=== PATIENT | male | born 1985 | race Caucasian/White ===

== ENCOUNTER → 2017-10-17 | Outpatient (CLI) | payer OTHER ==
[~2017-10-17] MED LIST: PROHANCE 279.3MG/ML 15ML VIAL (A9576) As Ordered; PROHANCE 279.3MG/ML 5ML VIAL (A9576) As Ordered
== END ==
LOC: M RAD 12:25
DX: H90.11 Conductive hearing loss, unilateral, right ear, with unrestricted hearing on the contralateral side (principal)
CPT/HCPCS: A9576

== ENCOUNTER → 2018-03-03 | Outpatient (CLI) | payer OTHER ==
[2018-03-03 09:27] LABS: HEMATOCRIT 45.5 % (42.0-52.0); HEMOGLOBIN 15.2 g/dl (13.5-17.5); MEAN CORPUSCULAR HEMOGLOBIN 30.8 pg (27.0-33.0); MEAN CORPUSCULAR HGB CONC 33.4 g/dl (32.0-36.5); MEAN CORPUSCULAR VOLUME 92.3 fl (80.0-96.0); PLATELET COUNT, AUTOMATED 251 10^3/uL (150-450); RED BLOOD COUNT 4.93 10^6/uL (4.30-6.10); RED CELL DISTRIBUTION WIDTH 13.6 % (11.5-14.5); WHITE BLOOD COUNT 7.9 10^3/uL (4.0-10.0)
[2018-03-03 09:56] LABS: ALBUMIN 3.9 GM/DL (3.2-5.2); ALKALINE PHOSPHATASE 72 U/L (45-117); ALT/SGPT 54 U/L (12-78); ANION GAP 4 MEQ/L (8-16); AST/SGOT 29 U/L (7-37); BILIRUBIN,TOTAL 0.4 MG/DL (0.2-1.0); BLOOD UREA NITROGEN 12 MG/DL (7-18); CALCIUM LEVEL 8.7 MG/DL (8.5-10.1); CARBON DIOXIDE LEVEL 29 MEQ/L (21-32); CHLORIDE LEVEL 107 MEQ/L (98-107); CHOLESTEROL LEVEL 168 MG/DL (<200); CREATININE FOR GFR 1.17 MG/DL (0.70-1.30); GLOMERULAR FILTRATION RATE > 60.0 (>60); GLUCOSE, FASTING 111 MG/DL (70-100); HDL CHOLESTEROL 37 MG/DL (>40); IRON (FE) 58 UG/DL (65-175); LDL CHOLESTEROL 97.2 MG/DL (<100); NON-HDL-C 131 MG/DL; PERCENT SATURATION 22.2 % (19.7-50.0); POTASSIUM SERUM 4.8 MEQ/L (3.5-5.1); SODIUM LEVEL 140 MEQ/L (136-145); TOTAL IRON BINDING CAPACITY 261 UG/DL (250-450); TOTAL PROTEIN 6.9 GM/DL (6.4-8.2); TRIGLYCERIDES LEVEL 169 MG/DL (<150)
[2018-03-03 10:43] LABS: TOTAL 25(OH) VITAMIN D 23.5 NG/ML (30.0-100.0)
== END ==
LOC: M LAB 09:04
DX: R53.83 Other fatigue (principal); D64.9 Anemia, unspecified; E03.9 Hypothyroidism, unspecified
CPT/HCPCS: 83550

== ENCOUNTER → 2018-06-02 | Outpatient (CLI) | payer OTHER ==
[~2018-06-02] MED LIST changes: +E-Z-GAS II EFFERVESCENT PACKET (SODIUM BICARB./CITRIC ACID/SIMETHICONE) As Ordered; +E-Z-HD 98% w/w 340GM SUSP BTL As Ordered; +E-Z-PAQUE 96% w/w SUSP 176GM BTL As Ordered; -PROHANCE 279.3MG/ML 15ML VIAL (A9576) As Ordered; -PROHANCE 279.3MG/ML 5ML VIAL (A9576) As Ordered
== END ==
LOC: M RAD 09:45
DX: K21.9 Gastro-esophageal reflux disease without esophagitis (principal); R13.10 Dysphagia, unspecified
CPT/HCPCS: 74241

== ENCOUNTER 2018-11-09 12:23 | Day surgery (SDC) | payer OTHER, SELFPAY ==
[~2018-11-09] VITALS: Ht 182.9 cm; Wt 119.7 kg
[~2018-11-09 12:23] MED LIST changes: +ALPR0.5T3 PO; -E-Z-GAS II EFFERVESCENT PACKET (SODIUM BICARB./CITRIC ACID/SIMETHICONE) As Ordered; -E-Z-HD 98% w/w 340GM SUSP BTL As Ordered; -E-Z-PAQUE 96% w/w SUSP 176GM BTL As Ordered; +ESCI20TA PO; +MOME50SP2; +NS 1,000 ML IV ONE; +OMEP20TA PO
[2018-11-09] MEDS ORDERED: PROPOFOL 200 MG/20 ML VIAL As Ordered ONE (13:05)
[2018-11-09] MEDS ORDERED: LIDOCAINE 2% INJ 100 MG/5 ML SDV (FOR ANES.) As Ordered ONE (13:05)
--- NOTE | 2018-11-09 14:46 | ROOR ---
Patient Name: Kennedy Moreno Procedure Date: 11/09/2018 2:16 PM Date of : 1985 Age: 33 Room: [facility] Gender: Male Note Status: Finalized Procedure: Upper GI endoscopy Indications: Heartburn, Suspected gastro-esophageal reflux disease Providers: Vik Juan MD Referring MD: CARYN CONNOR MD Requesting Provider: Medicines: Monitored Anesthesia Care Complications: No immediate complications. Procedure: Pre-Anesthesia Assessment: - Prior to the procedure, a History and Physical was performed, and patient medications and allergies were reviewed. The patient is competent. The risks and benefits of the procedure and the sedation options and risks were discussed with the patient. All questions were answered and informed consent was obtained. Patient identification and proposed procedure were verified by the physician, the nurse and the anesthesiologist in the procedure room. Mental Status Examination: alert and oriented. Airway Examination: normal oropharyngeal airway and neck mobility. Respiratory Examination: clear to auscultation. CV Examination: normal. Prophylactic Antibiotics: The patient does not require prophylactic antibiotics. Prior Anticoagulants: The patient has taken no previous anticoagulant or antiplatelet agents. ASA Grade Assessment: II - A patient with mild systemic disease. After reviewing the risks and benefits, the patient was deemed in satisfactory condition to undergo the procedure. The anesthesia plan was to use monitored anesthesia care (MAC). Immediately prior to administration of medications, the patient was re-assessed for adequacy to receive sedatives. The heart rate, respiratory rate, oxygen saturations, blood pressure, adequacy of pulmonary ventilation, and response to care were monitored throughout the procedure. The physical status of the patient was re-assessed after the procedure. The Endoscope was introduced through the mouth, and advanced to the second part of duodenum. The upper GI endoscopy was accomplished without difficulty. The patient tolerated the procedure well. Findings: The Z-line was regular and was found 40 cm from the incisors. Mucosal changes including ringed esophagus, longitudinal furrows and white plaques were found in the middle third of the esophagus and in the lower third of the esophagus. Biopsies were obtained from the proximal and distal esophagus with cold forceps for histology of suspected eosinophilic esophagitis. Verification of patient identification for the specimen was done by the physician and nurse using the patient's name, date and medical record number. Estimated blood loss was minimal. Diffuse moderate inflammation characterized by erythema and granularity was found in the gastric body and in the gastric antrum. Biopsies were taken with a cold forceps for Helicobacter pylori testing. The duodenal bulb and second portion of the duodenum were normal. Impression: - Z-line regular, 40 cm from the incisors. - Esophageal mucosal changes suspicious for eosinophilic esophagitis. Biopsied. - Gastritis. Biopsied. - Normal duodenal bulb and second portion of the duodenum. Recommendation: - Patient has a contact number available for emergencies. The signs and symptoms of potential delayed complications were discussed with the patient. Return to normal activities tomorrow. Written discharge instructions were provided to the patient. - Resume previous diet. - Continue present medications. - Follow an antireflux regimen. - Await pathology results. - Based on the biopsy results you will receive a phone call from GI clinic in 2-3 weeks to review the pathology results AND/OR your results will be faxed to your Primary care physician. - Return to primary care physician. Vik Juan MD Vik Juan MD 11/09/2018 2:46:11 PM This report has been signed electronically. Number of Addenda: 0 Note Initiated On: 11/09/2018 2:16 PM Estimated Blood Loss: Estimated blood loss: none.
[2018-11-09 15:09] VITALS: BP 128/78
== END 2018-11-09 15:08 | disposition home or self-care (01) ==
LOC: M OPP 12:23
PROVIDERS: ATTEND Internal Medicine Gastroenterology
DX: K22.8 Other specified diseases of esophagus (principal); K29.70 Gastritis, unspecified, without bleeding; R12 Heartburn; K21.9 Gastro-esophageal reflux disease without esophagitis

== ENCOUNTER 2018-11-24 11:03 | Emergency (ER) | payer OTHER ==
[~2018-11-24] VITALS: Ht 182.9 cm; Wt 260.0 kg
[2018-11-24 11:03] VITALS: BP 142/90
[~2018-11-24 11:03] MED LIST changes: -NS 1,000 ML IV ONE
== END 2018-11-24 11:53 | disposition home or self-care (01) ==
LOC: M ED 11:03
DX: M79.651 Pain in right thigh (principal); M79.10 Myalgia, unspecified site

== ENCOUNTER → 2019-01-06 | Outpatient (CLI) | payer OTHER ==
[~2019-01-06] MED LIST changes: +ISOVUE-370 76% 125ML VIAL (Q9967 PER ML) As Ordered ONE
--- NOTE | 2019-01-06 17:46 | REP ---
Clinical: History of thoracic aortic aneurysm. Technique: Axial angiographic imaging from the thoracic inlet to the upper abdomen with images obtained in maximal arterial enhancement using 100 ml Isovue 370 intravenous contrast material. Multiplanar re-formations and MIP 3-D images obtained. Findings: Mild cardiomegaly cannot be excluded. There is no evidence for pericardial effusion. There is aneurysmal dilatation to the root of the aorta measuring approximately 4.6 cm maximal diameter with smooth tapering to the level of the aortic arch measuring 3.1 cm diameter and in the mid descending thoracic aorta measuring 2.6 cm maximal diameter. No evidence for atheromatous plaquing, intimal thickening, or dissection appreciated. Pulmonary vasculature appears normal. The bilateral lung koehler are well-aerated and clear. No consolidation, effusion, or pneumothorax. No axillary, hilar, or mediastinal adenopathy. Tracheobronchial tree is patent. Surrounding musculoskeletal structures are intact and normal. Impression: 1. Aneurysmal dilatation to the ascending thoracic aorta with smooth normal tapering through the arch and descending aorta. 2. No acute mediastinal or pleuroparenchymal process appreciated. Electronically Signed by Palomo Diamond MD 01/06/2019 05:37 P
--- NOTE | 2019-01-06 17:51 | REP ---
Clinical: Thoracic aortic aneurysm. Technique: Axial angiographic imaging from the lung bases to the pubic symphysis with images obtained in maximal arterial enhancement using 100 ml Isovue 370 intravenous contrast material. Multiplanar and 3-D MIP re-formations of the aorta and branch vessels noted. Findings: The abdominal aorta is normal caliber and there is no evidence for aneurysm or dissection. All upper abdominal aorta measures approximately 2.4 cm maximal diameter at the level of the celiac axis while the mid aorta just below the renal arteries measures 1.9 cm maximal diameter and the distal aorta just before bifurcation measures 1.8 cm maximal diameter. Major branch vessels including celiac axis, superior mesenteric artery, solitary right and dual left renal arteries, JANET, lumbar arteries and common iliac arteries are all normal in appearance. Spleen, pancreas, gallbladder, bilateral adrenal glands, kidneys and visualized portions of the liver are normal. The enteric system is without obstruction or acute inflammatory process. Normal terminal ileum and appendix identified in the right lower quadrant. Pelvis demonstrates normal bladder and age appropriate prostate/seminal vesicles. No ascites. No free air. No adenopathy. Musculoskeletal structures are intact. Impression: 1. Normal abdominal aorta and branch vessels. 2. No acute abdominopelvic pathology appreciated. Electronically Signed by Palomo Diamond MD 01/06/2019 05:41 P
== END ==
LOC: M RAD 16:19
PROVIDERS: ATTEND Internal Medicine Cardiovascular Disease
DX: Q23.1 Congenital insufficiency of aortic valve (principal); K21.9 Gastro-esophageal reflux disease without esophagitis; F41.1 Generalized anxiety disorder; Z87.11 Personal history of peptic ulcer disease; R01.1 Cardiac murmur, unspecified
CPT/HCPCS: 71275; 74174; Q9967

== ENCOUNTER → 2019-01-13 | Outpatient (REF) | payer OTHER ==
[~2019-01-13] MED LIST changes: -ISOVUE-370 76% 125ML VIAL (Q9967 PER ML) As Ordered ONE
== END ==
LOC: M SFHCLERA 11:21
PROVIDERS: ATTEND Physician Assistant
DX: J06.9 Acute upper respiratory infection, unspecified (principal)

== ENCOUNTER → 2019-07-14 | Outpatient (CLI) | payer OTHER ==
[~2019-07-14] MED LIST changes: +OMEP-358 PO; -OMEP20TA PO
[2019-07-14 08:56] LABS: HEMATOCRIT 48.1 % (42.0-52.0); MEAN CORPUSCULAR HEMOGLOBIN 30.9 pg (27.0-33.0); MEAN CORPUSCULAR HGB CONC 33.3 g/dl (32.0-36.5); MEAN CORPUSCULAR VOLUME 92.9 fl (80.0-96.0); PLATELET COUNT, AUTOMATED 295 10^3/uL (150-450); RED BLOOD COUNT 5.18 10^6/uL (4.30-6.10); WHITE BLOOD COUNT 5.9 10^3/uL (4.0-10.0)
[2019-07-14 09:39] LABS: ALBUMIN 4.1 GM/DL (3.2-5.2); ALT/SGPT 53 U/L (12-78); BILIRUBIN,TOTAL 1.2 MG/DL (0.2-1.0); BLOOD UREA NITROGEN 13 MG/DL (7-18); CALCIUM LEVEL 9.3 MG/DL (8.5-10.1); CARBON DIOXIDE LEVEL 29 MEQ/L (21-32); CHLORIDE LEVEL 106 MEQ/L (98-107); CHOLESTEROL LEVEL 193 MG/DL (<200); CHOLESTEROL RISK RATIO 4.707 (<5); CREATININE FOR GFR 1.27 MG/DL (0.70-1.30); GLOMERULAR FILTRATION RATE > 60.0 (>60); GLUCOSE, FASTING 104 MG/DL (70-100); HDL CHOLESTEROL 41 MG/DL (>40); LDL CHOLESTEROL 129 MG/DL (<100); NON-HDL-C 152 MG/DL; POTASSIUM SERUM 4.7 MEQ/L (3.5-5.1); SODIUM LEVEL 140 MEQ/L (136-145); TOTAL PROTEIN 7.4 GM/DL (6.4-8.2); TRIGLYCERIDES LEVEL 116 MG/DL (<150)
[2019-07-14 09:40] LABS: TOTAL 25(OH) VITAMIN D 27.2 NG/ML (30.0-100.0)
[2019-07-14 10:10] LABS: HEMOGLOBIN A1c 6.1 %
== END ==
LOC: M LAB 08:07
PROVIDERS: ATTEND Family Medicine
DX: R53.83 Other fatigue (principal)

== ENCOUNTER → 2019-07-14 | Outpatient (CLI) | payer OTHER ==
[2019-07-14 08:56] LABS: HEMATOCRIT 46.6 % (42.0-52.0); HEMOGLOBIN 15.6 g/dl (13.5-17.5); MEAN CORPUSCULAR HEMOGLOBIN 30.8 pg (27.0-33.0); MEAN CORPUSCULAR HGB CONC 33.5 g/dl (32.0-36.5); MEAN CORPUSCULAR VOLUME 91.9 fl (80.0-96.0); PLATELET COUNT, AUTOMATED 291 10^3/uL (150-450); RED BLOOD COUNT 5.07 10^6/uL (4.30-6.10); WHITE BLOOD COUNT 5.9 10^3/uL (4.0-10.0)
[2019-07-14 09:30] LABS: ALBUMIN 4.1 GM/DL (3.2-5.2); ALT/SGPT 55 U/L (12-78); BILIRUBIN,DIRECT 0.2 MG/DL (0.0-0.2); BILIRUBIN,TOTAL 1.2 MG/DL (0.2-1.0); BLOOD UREA NITROGEN 14 MG/DL (7-18); CALCIUM LEVEL 9.3 MG/DL (8.5-10.1); CARBON DIOXIDE LEVEL 29 MEQ/L (21-32); CHLORIDE LEVEL 106 MEQ/L (98-107); CREATININE FOR GFR 1.26 MG/DL (0.70-1.30); GLOMERULAR FILTRATION RATE > 60.0 (>60); GLUCOSE, FASTING 107 MG/DL (70-100); PHOSPHORUS LEVEL 2.7 MG/DL (2.5-4.9); POTASSIUM SERUM 4.5 MEQ/L (3.5-5.1); SODIUM LEVEL 141 MEQ/L (136-145); TOTAL PROTEIN 7.2 GM/DL (6.4-8.2)
== END ==
LOC: M LAB 08:10
PROVIDERS: ATTEND Podiatrist Foot & Ankle Surgery
DX: B35.1 Tinea unguium (principal); Z79.899 Other long term (current) drug therapy

== ENCOUNTER 2019-08-14 22:32 | Emergency (ER) | payer OTHER ==
[~2019-08-14] VITALS: Ht 182.9 cm; Wt 122.1 kg
[2019-08-15] MEDS ORDERED: diphenhydrAMINE 50 MG CAP PO ONE
[2019-08-15 00:08] VITALS: BP 145/95
== END 2019-08-15 00:09 | disposition home or self-care (01) ==
LOC: M ED 22:32
DX: L50.9 Urticaria, unspecified (principal); I35.0 Nonrheumatic aortic (valve) stenosis; R51 Headache; K21.9 Gastro-esophageal reflux disease without esophagitis; Z79.899 Other long term (current) drug therapy

== ENCOUNTER → 2019-10-01 | Outpatient (CLI) | payer OTHER ==
--- NOTE | 2019-10-01 09:37 | REP ---
Clinical: Hypothyroidism and fatigue . Comparison: None . Technique: PA and lateral. Findings: The mediastinum and cardiac silhouette are normal. The lung koehler are clear and without acute consolidation, effusion, or pneumothorax. The skeletal structures are intact and normal. Impression: 1. No acute cardiopulmonary process. Electronically Signed by Palomo Diamond MD 10/01/2019 09:28 A
[2019-10-01 11:15] LABS: HEMATOCRIT 48.3 % (42.0-52.0); HEMOGLOBIN 15.9 g/dl (13.5-17.5); MEAN CORPUSCULAR HEMOGLOBIN 30.5 pg (27.0-33.0); MEAN CORPUSCULAR HGB CONC 32.9 g/dl (32.0-36.5); MEAN CORPUSCULAR VOLUME 92.5 fl (80.0-96.0); PLATELET COUNT, AUTOMATED 295 10^3/uL (150-450); RED BLOOD COUNT 5.22 10^6/uL (4.30-6.10); WHITE BLOOD COUNT 6.5 10^3/uL (4.0-10.0)
[2019-10-01 11:27] LABS: ALBUMIN 4.1 GM/DL (3.2-5.2); ALT/SGPT 45 U/L (12-78); BILIRUBIN,TOTAL 0.7 MG/DL (0.2-1.0); BLOOD UREA NITROGEN 11 MG/DL (7-18); CALCIUM LEVEL 9.2 MG/DL (8.5-10.1); CARBON DIOXIDE LEVEL 28 MEQ/L (21-32); CHLORIDE LEVEL 109 MEQ/L (98-107); CHOLESTEROL LEVEL 204 MG/DL (<200); CHOLESTEROL RISK RATIO 4.744 (<5); CREATININE FOR GFR 1.12 MG/DL (0.70-1.30); GLOMERULAR FILTRATION RATE > 60.0 (>60); GLUCOSE, FASTING 98 MG/DL (70-100); HDL CHOLESTEROL 43 MG/DL (>40); LDL CHOLESTEROL 144 MG/DL (<100); NON-HDL-C 161 MG/DL; POTASSIUM SERUM 4.5 MEQ/L (3.5-5.1); SODIUM LEVEL 142 MEQ/L (136-145); TOTAL PROTEIN 7.3 GM/DL (6.4-8.2); TRIGLYCERIDES LEVEL 87 MG/DL (<150)
[2019-10-01 11:29] LABS: TOTAL 25(OH) VITAMIN D 14.2 NG/ML (30.0-100.0)
[2019-10-01 12:13] LABS: HEMOGLOBIN A1c 6.1 %
== END ==
LOC: M LAB 09:02
PROVIDERS: ATTEND Family Medicine
DX: R53.83 Other fatigue (principal)

== ENCOUNTER 2020-07-22 22:47 | Emergency (ER) | payer BC ==
[~2020-07-22] VITALS: Ht 185.4 cm; Wt 121.9 kg
[2020-07-22] MEDS ORDERED: BENA25CA4 PO (22:59)
[2020-07-22] MEDS ORDERED: PANT40TA29 PO (23:00)
[2020-07-23 00:41] VITALS: BP 133/72
== END 2020-07-23 00:43 | disposition home or self-care (01) ==
LOC: M ED 22:47
DX: F41.1 Generalized anxiety disorder (principal); K21.9 Gastro-esophageal reflux disease without esophagitis; Z79.899 Other long term (current) drug therapy

== ENCOUNTER → 2020-10-28 | Outpatient (CLI) | payer BC ==
[~2020-10-28] MED LIST changes: +BENA25CA4 PO; -ESCI20TA PO; +ESCI20TA16 PO; +LEXA5TAB13 PO; +PANT40TA29 PO
== END ==
LOC: M LABSMTC 09:34
PROVIDERS: ATTEND Anesthesiology
DX: Z01.812 Encounter for preprocedural laboratory examination (principal); Z20.822 Contact with and (suspected) exposure to COVID-19

== ENCOUNTER 2020-11-02 11:02 | Day surgery (SDC) | payer BC ==
[~2020-11-02] VITALS: Ht 185.4 cm; Wt 117.9 kg
[~2020-11-02 11:02] MED LIST changes: +NS 1,000 ML IV ONE
--- OUTSIDE RECORDS SUMMARY | 2020-11-02 11:07 | CCD | Continuity of Care Document ---
Author Author Kennedy FAIRBANKS MD Organization Unknown Address [address] [place] [address] Phone [phone] Care Team Providers Care Shotblast Equipment Operator Name Role Phone Saba Peralta MD AUTM [phone] Raj Sawant MD AUTM [phone] Problems Active Problems Provider Date Bicuspid aortic valve Onset: Anxiety Onset: Gastroesophageal reflux disease Bhupendra Fairbanks MD Onset: 0 12/29/2018 Generalized anxiety disorder Bhupendra Fairbanks MD Onset: 12/05 H/O: peptic ulcer Bhupendra Fairbanks MD Onset: 12/29/2018 Aneurysm of thoracic aorta Bhupendra Fairbanks MD Onset: 2018 Social History Type Date Description Comments Sex Unknown ETOH Use Occasionally consumes alcohol so cially once weekly Tobacco Use Start: Unknown Patient has never smoked Recreational Drug Use Denies Drug Use Smoking Status Reviewed: 10/18/20 Patient has never smoked Allergies, Adverse Reactions, Alerts Active Allergies Reaction Severity Comments Date Zithromax 07/21/2020 Inactive Allergies NKDA 12/25/2018 Medications Active Medications SIG Qnty Indications Ordering Provide r Date Alprazolam 0.5mg Tablets as n eeded Unknown Daily Value Multivitamin Tablets 1 by mouth every day Unknown Escitalopram Oxalate 20mg Tablets 1 tab by mouth weekly Unknown Immunizations Description No Information Available Vital Signs Date Vital Result Comment 10/18/2020 3:07pm BP Systolic 116 mmHg BP Diastolic 78 mmHg Heart Rate 72 /min Height 72 inches 6'0" Weight 262.00 lb BMI (Body Mass Index) 35.5 kg/m2 Respiratory Rate 16 /min 07/21/2020 9:03am BP Systolic 110 mmHg BP Diastolic 64 mmHg Heart Rate 78 /min Height 72 inches 6'0" Weight 267.00 lb BMI (Body Mass Index) 36.2 kg/m2 Results Test Acquired Date Facility Test Result H/L Range Note Order 08/21/2020 [facility] Echocardiogram Limited <pending> Order 08/18/2020 [facility] Nuclear Exercise/Myoview <pending> Order 08/18/2020 [facility] Carotid Bilateral <pending> Procedures Date Code Description Status 08/21/2020 08481 Echocardiography Complete W/Out Spectral/Color Doppler Completed 08/18/2020 53900 Duplex Scan Extracranial Arterie s, Complete Bilateral Study Completed 08/18/2020 62050 Cardiovascular Stress Test W/Int erpretation & Report Completed 08/18/2020 02857 Myocardial Perfusion Imaging Tomographic (Spect) Multiple Studies Completed Medical Devices Description No Information Available Encounters Type Date Location Provider Dx Diagnosis Office Visit 10/18/2020 3:00p [place] [facility] Bhupendra Fairbanks MD I71.2 Thoracic aortic aneurysm, without rupture K21.9 Gastro-esophageal reflux dis ease without esophagitis F41.1 Generalized anxiety disorder Q23.1 Congenital insufficiency of aortic valve Office Visit 07/21/2020 9:00a [place] [facility] Bhupendra Fairbanks MD K21.9 Gastro- esophageal reflux disease without esophagitis F41.1 Generalized anxiety disorder Z87.11 Personal history of peptic u lcer disease Q23.1 Congenital insufficiency of aortic valve I71.2 Thoracic aortic aneurysm, wi thout rupture Assessments Date Code Description Provider 10/18/2020 I71.2 Thoracic aortic aneurysm, withou t rupture Bhupendra Fairbanks MD 10/18/2020 K21.9 Gastro-esophageal reflux disease without esophagitis Bhupendra Fairbanks MD 10/18/2020 F41.1 Generalized anxiety disorder Tho cynthia Fairbanks MD 10/18/2020 Q23.1 Congenital insufficiency of aort ic valve Bhupendra Fairbanks MD 08/21/2020 I71.2 Thoracic aortic aneurysm, withou t rupture Jonn Tillman MD 08/21/2020 Q23.1 Congenital insufficiency of aort ic valve Jonn Tillman MD 08/21/2020 K21.9 Gastro-esophageal reflux disease without esophagitis Jonn Tillman MD 08/18/2020 I71.2 Thoracic aortic aneurysm, withou t rupture Jonn Tillman MD 08/18/2020 I71.2 Thoracic aortic aneurysm, withou t rupture Low Portillo MD 08/18/2020 Q23.1 Congenital insufficiency of aort ic valve Jonn Tillman MD 08/18/2020 Q23.1 Congenital insufficiency of aort ic valve Low Portillo MD 08/18/2020 Q23.1 Congenital insufficiency of aort ic valve Daniel Zuniga MD 08/18/2020 I71.2 Thoracic aortic aneurysm, withou t rupture Daniel Zuniga MD 07/21/2020 K21.9 Gastro-esophageal reflux disease without esophagitis Bhupendra Fairbanks MD 07/21/2020 F41.1 Generalized anxiety disorder Yoan Fairbanks MD 07/21/2020 Z87.11 Personal history of peptic ulcer disease Bhupendra Fairbanks MD 07/21/2020 Q23.1 Congenital insufficiency of aort ic valve Bhupendra Fairbanks MD 07/21/2020 I71.2 Thoracic aortic aneurysm, withou t rupture Bhupendra Fairbanks MD 06/20/2020 K21.9 Gastro-esophageal reflux disease without esophagitis Bhupendra Fairbanks MD 06/20/2020 F41.1 Generalized anxiety disorder Yoan Fairbanks MD 06/20/2020 Z87.11 Personal history of peptic ulcer disease Bhupendra Fairbanks MD 06/20/2020 I71.2 Thoracic aortic aneurysm, withou t rupture Bhupendra Fairbanks MD 06/20/2020 I35.0 Nonrheumatic aortic (valve) sten osis Bhupendra Fairbanks MD 06/20/2020 R01.1 Cardiac murmur, unspecified Elias asaf Fairbanks MD 05/16/2020 K21.9 Gastro-esophageal reflux disease without esophagitis Bhupendra Fairbanks MD 05/16/2020 F41.1 Generalized anxiety disorder Yoan Fairbanks MD 05/16/2020 Z87.11 Personal history of peptic ulcer disease Bhupendra Fairbanks MD 05/16/2020 I71.2 Thoracic aortic aneurysm, withou t rupture Bhupendra Fairbanks MD Plan of Treatment Future Appointment(s):* 01/21/2022 3:00 pm - [facility] ([id number]) at [place] [facility] * 12/18/2021 8:30 am - [facility] ([id number]) at [facility] * 09/06/2021 2:00 pm - Bhupendra Fairbanks MD at [place] [facility] * 09/06/2021 1:00 pm - ECHO Schedule (219 and 319) at [place] [facility] Schedule 10/18/2020 - Bhupendra Fairbanks MD* I71.2 Thoracic aortic aneurysm, without rupture * K21.9 Gastro-esophageal reflux disease without esophagitis * F41.1 Generalized anxiety disorder * Q23.1 Congenital insufficiency of aortic valve* Recommendations:* 1. No additional cardiac testing is necessary at this time. 2. He will undergo repeat CT angiography of his thoracic aorta in July and a month later will see the surgeon in follow-up. 3. Kennedy has been reminded as well that we expect to be copied on any other outside clinic visits as well as testing. 4. I will see him in follow-up in over a year with an echo prior to the visit or sooner if there is any significant change in his clinical status. Functional Status Description No Information Available Mental Status Description No Information Available Referrals Refer to Reason for Referral Status Appt Date Bhupendra Fairbanks MD Scheduled 08/18/2020 [address] [facility] [address] [place], [place] [id number] [phone] Raj Sawant MD Scheduled 08/18/2020 [facility] [place], [place] [id number] [phone]
--- OUTSIDE RECORDS SUMMARY | 2020-11-02 11:07 | CCD | Continuity of Care Document ---
Author Kennedy Rainey DPRc Organization Unknown Address [address] [place] [address], [facility] [address] [place] [address] Phone [phone] Problems Active Problems Provider Date Onychomycosis Dalton Dawn DPM Onset: 07/01/2019 Plantar fascial fibromatosis Dalton Dawn DPM Onset: Resolved Problems Cellulitis of left toe Dalton Dawn DPM Onset: 0 Resolved: 05/31/2020 Ingrowing nail Dalton Dawn DPM Onset: 04/03/2020 Resolved: 05/31/2020 Social History Type Date Description Comments Sex Unknown ETOH Use Occasionally consumes alcohol 1- 2 beer days weeks Tobacco Use Start: Unknown Patient has never smoked Allergies, Adverse Reactions, Alerts Description No Known Drug Allergies Medications Active Medications SIG Qnty Indications Ordering Provide r Date Ciclopirox 8% Solution apply to affected nail(s) daily 6.6units Dalton Dawn DPM 09/06/2019 Terbinafine HCL 250mg Tablets 1 by mouth every day 45tabs Dalton Dawn DPM 07/14/2019 Alprazolam 0.5mg Tablets Take One Tablet By Mouth Three Times A Day Maximum Daily Dose 3 Unknown Omeprazole 20mg Capsules DR Kathryn Mehta,Moid Escitalopram Oxalate 20mg Tablets Kathryn Mehta,Moid Metoprolol Succinate ER 25mg Tablets ER 24HR [facility] Medications Administered in Office Medication SIG Qnty Indications Ordering Provider Date Inject Triamcinolone Acetonide 10 ML, ND C 8334-1263-07 Injection Dalton barrera DPM 09/06/2020 Inject Dexamthosone Phosphate 11317-527- 30 Injection Dalton Dawn DPM 020 Inject Triamcinolone Acetonide 10 ML, ND C 8441-2109-20 Injection Dalton barrera, YONY 08/07/2020 Inject Dexamthosone Phosphate 02965-170- 30 Injection Dalton Dawn DPM 020 Immunizations Description No Information Available Vital Signs Date Vital Result Comment 07/01/2019 10:26am Height 72 inches 6'0" Weight 255.00 lb BP Systolic 110 mmHg BP Diastolic 64 mmHg Heart Rate 81 /min BMI (Body Mass Index) 34.6 kg/m2 Results Description No Information Available Procedures Date Code Description Status 09/06/2020 23028 Inject Tendon/Ligament/Cyst Comp leted 08/07/202064909 Inject Tendon/Ligament/Cyst Comp leted 06/26/2020 81218 Strapping Foot Or Ankle Complete d 03/28/2020 86373 Avulsion Nail Plate Simple Singl e Completed Medical Devices Description No Information Available Encounters Type Date Location Provider Dx Diagnosis Office Visit 09/06/2020 2:15p [place] [facility] Dalton Dawn DPM 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 fascial fibromatosis M79.673 Pain in unspecified foot Office Visit 08/07/2020 2:30p [place] [facility] Dalton Dawn DPM 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 fascial fibromatosis Office Visit 06/26/2020 2:30p [place] [facility] Dalton Dawn DPM 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 fascial fibromatosis B35.1 Tinea unguium Office Visit 05/15/2020 2:30p [place] [facility] Dalton Dawn DPM B35.1 Tinea unguium 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 fascial fibromatosis Office Visit 03/28/2020 9:45a [place] [facility] Dalton Dawn DPM L03.032 Cellulitis of left toe L60.0 Ingrowing nail B35.1 Tinea unguium Assessments Date Code Description Provider 09/06/2020 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 fascial fibromatosis And lesli Dawn DPM 09/06/2020 M79.673 Pain in unspecified foot Dalton Dawn, YONY 08/07/2020 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 fascial fibromatosis And lesli Dawn, RAINERM 06/26/2020 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 fascial fibromatosis And lesli Dawn, RAINERM 06/26/2020 B35.1 Tinea unguium Dalton Dawn, RAINERM 05/15/2020 B35.1 Tinea unguium Dalton Dawn, RAINERM 05/15/2020 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 fascial fibromatosis And lesli Dawn, RAINERM 03/28/2020 L03.032 Cellulitis of left toe Dalton Dawn, YONY 03/28/2020 L60.0 Ingrowing nail Dalton Dawn, YONY 03/28/2020 B35.1 Tinea unguium Dalton Dawn DPM Plan of Treatment Future Appointment(s):* 10/18/2020 2:30 pm - Dalton Dawn DPM at [facility] Functional Status Description No Information Available Mental Status Description No Information Available Referrals Description No Information Available
--- OUTSIDE RECORDS SUMMARY | 2020-11-02 11:07 | CCD | Continuity of Care Document ---
Author Kennedy Rainey DPM Organization Unknown Address [address] [place] [address], [facility] [address] [place] [address] Phone [phone] Problems Active Problems Provider Date Plantar fascial fibromatosis Dalton Dawn DPM Onset: Social History Type Date Description Comments Sex [...] Succinate ER 25mg Tablets ER 24HR [facility] Medications Administered in Office Medication SIG Qnty Indications Ordering Provider Date Inject Triamcinolone Acetonide 10 ML, ND C 8327-8828-42 Injection Dalton barrera DPM 09/06/2020 Inject Dexamthosone Phosphate 78498-305- 30 Injection Dalton Dawn DPM 020 Inject Triamcinolone Acetonide 10 ML, ND C 7723-8165-40 Injection Dalton barrera DPM 08/07/2020 Inject Dexamthosone Phosphate 33869-325- 30 Injection Dalton Dawn, YONY 020 Immunizations Description No Information Available Vital Signs Date Vital Result Comment 07/01/2019 10:26am Height 72 inches 6'0" Weight 255.00 lb BP Systolic 110 mmHg BP Diastolic 64 mmHg Heart Rate 81 /min BMI (Body Mass Index) 34.6 kg/m2 Results Description No Information Available Procedures Date Code Description Status 09/06/202010733 Inject Tendon/Ligament/Cyst Comp leted 08/07/202006345 Inject Tendon/Ligament/Cyst Comp leted 06/26/2020 07578 Strapping Foot Or Ankle Complete d Medical Devices Description No Information Available Encounters Type Date Location Provider Dx Diagnosis Office Visit 10/18/2020 10:45a [place] [facility] Dalton Dawn DPM 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 fascial fibromatosis Office Visit 09/06/2020 2:15p [place] [facility] Dalton Dawn DPM 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 fascial fibromatosis M79.673 Pain in unspecified foot Office Visit 08/07/2020 2:30p [place] [facility] Dalton Dawn DPM 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 fascial fibromatosis Office Visit 06/26/2020 2:30p [place] [facility] Dalton Dawn DPM 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 fascial fibromatosis B35.1 Tinea unguium Office Visit 05/15/2020 2:30p [place] [facility] Dalton Dawn DPM B35.1 Tinea unguium 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 fascial fibromatosis Assessments Date Code Description Provider 10/18/2020 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 fascial fibromatosis And lesli Dawn DPM 09/06/2020 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 fascial fibromatosis And lesli Dawn DPM 09/06/2020 M79.673 Pain in unspecified foot Dalton Dawn DPM 08/07/2020 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 fascial fibromatosis And lesli Dawn DPM 06/26/2020 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 fascial fibromatosis And lesli Dawn DPM 06/26/2020 B35.1 Tinea unguium Dalton Dawn DPM 05/15/2020 B35.1 Tinea unguium Dalton Dawn, YONY 05/15/2020 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 fascial fibromatosis And lesli Dawn DPM Plan of Treatment No Information Available Functional Status Description No Information Available Mental Status Description No Information Available Referrals Description No Information Available
--- OUTSIDE RECORDS SUMMARY | 2020-11-02 11:07 | CCD | Continuity of Care Document ---
Author Author Kennedy FAIRBANKS MD Organization Unknown Address [address] [place] [address] Phone [phone] Care Team Providers Care Chuck Tender Name Role Phone Saba Peralta MD AUTM [phone] Raj Sawant MD AUTM [phone] Problems Active Problems Provider Date Bicuspid aortic [...] <pending> Procedures Date Code Description Status 08/21/2020 32231 Echocardiography Complete W/Out Spectral/Color Doppler Completed 08/18/2020 92843 Duplex Scan Extracranial Arterie s, Complete Bilateral Study Completed 08/18/2020 84248 Cardiovascular Stress Test W/Int erpretation & Report Completed 08/18/2020 98292 Myocardial Perfusion Imaging Tomographic (Spect) Multiple Studies Completed Medical Devices Description No Information Available Encounters Type Date Location Provider Dx Diagnosis Office Visit 10/18/2020 3:00p [place] [facility] Bhupendra Fairbanks MD I71.2 Thoracic aortic aneurysm, without rupture K21.9 Gastro-esophageal reflux dis ease without esophagitis F41.1 Generalized anxiety disorder Q23.1 Congenital insufficiency of aortic valve Office Visit 07/21/2020 9:00a [place] [facility] Bhupendra Fairbanks MD K21.9 Gastro- esophageal [...] 3:00 pm - [facility] (903) at [place] [facility] * 12/18/2021 8:30 am - [facility] ([id number]) at [place] [facility] * 09/06/2021 2:00 pm - Bhupendra Fairbanks MD at [place] [facility] * 09/06/2021 1:00 pm - E[facility] Schedule (219 and 319) at [place] [facility] Schedule 10/18/2020 - Bhupendra Fairbanks MD* [...] Date Bhupendra Fairbanks MD Scheduled 08/18/2020 22[address] [facility] [address] [place], [place] [id number] [phone] Raj Sawant MD Scheduled 08/18/2020 [facility]1 [place], [place] [address] [phone]
--- OUTSIDE RECORDS SUMMARY | 2020-11-02 11:07 | CCD | Continuity of Care Document ---
Author Kennedy Rainey DPM Organization Unknown Address [address] [place] [address], [facility] [address] [place] [address] Phone [phone] Problems Active Problems Provider Date Plantar fascial [...] DR Kathryn Mehta,Moid Escitalopram Oxalate 20mg Tablets Katrhyn Mehta,Moid Metoprolol Succinate ER 25mg Tablets ER 24HR [facility] Medications Administered in Office Medication SIG Qnty Indications Ordering Provider Date Inject Triamcinolone Acetonide 10 ML, ND C 7884-1757-39 Injection Dalton barrera DPM 09/06/2020 Inject Dexamthosone Phosphate 73614-005- 30 Injection Dalton Dawn DPM 020 Inject Triamcinolone Acetonide 10 ML, ND C 3796-1158-64 Injection Dalton barrera DPM 08/07/2020 Inject Dexamthosone Phosphate 58475-547- 30 Injection Dalton Dawn DPM 020 Immunizations Description No Information Available Vital Signs Date Vital Result Comment 07/01/2019 10:26am Height 72 inches 6'0" Weight 255.00 lb BP Systolic 110 mmHg BP Diastolic 64 mmHg Heart Rate 81 /min BMI (Body Mass Index) 34.6 kg/m2 Results Description No Information Available Procedures Date Code Description Status 09/06/2020 94647 Inject Tendon/Ligament/Cyst Comp leted 08/07/202079602 Inject Tendon/Ligament/Cyst Comp leted 06/26/2020 94071 Strapping Foot Or Ankle Complete d Medical Devices Description No Information Available Encounters Type Date Location Provider Dx Diagnosis Office Visit 09/06/2020 2:15p [place] [facility] Dalton Dawn DPM 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 fascial fibromatosis M79.673 Pain in unspecified foot Office Visit 08/07/2020 2:30p [place] [facility] Dalton Dawn DPM 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 fascial fibromatosis Office Visit 06/26/2020 2:30p [place] [facility] Dalton Dawn DPM 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 fascial fibromatosis B35.1 Tinea unguium Office Visit 05/15/2020 2:30p [place] [facility] Dalton Dawn DPM B35.1 Tinea unguium 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 fascial fibromatosis Assessments Date Code Description Provider 09/06/2020 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 fascial fibromatosis And lesli Dawn DPM 09/06/2020 M79.673 Pain in unspecified foot Dalton Dawn DPM 08/07/2020 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 fascial fibromatosis And lesli Dawn DPM 06/26/2020 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 fascial fibromatosis And lesli Dawn DPM 06/26/2020 B35.1 Tinea unguium Dalton Dawn DPM 05/15/2020 B35.1 Tinea unguium Dalton Dawn DPM 05/15/2020 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 fascial fibromatosis And lesli Dawn DPM Plan of Treatment No Information Available Functional Status Description No Information Available Mental Status Description No Information Available Referrals Description No Information Available
--- OUTSIDE RECORDS SUMMARY | 2020-11-02 11:08 | CCD | Continuity of Care Document ---
Author Author Kennedy PORTILLO MD Organization Unknown Address [address] [place] [address] Phone [phone] Care Team Providers Care Bulk Filler Name Role Phone Saba Peralta MD AUTM [phone] Problems Active Problems Provider Date Bicuspid aortic [...] Use Denies Drug Use Smoking Status Reviewed: 07/18/20 Patient has never smoked Allergies, Adverse Reactions, [...] Available Vital Signs Date Vital Result Comment 07/21/2020 9:03am BP Systolic 110 mmHg BP Diastolic 64 mmHg Heart Rate 78 /min Height 72 inches 6'0" Weight 267.00 lb BMI (Body Mass Index) 36.2 kg/m2 02/11/2019 10:59am BP Systolic 120 mmHg BP Diastolic 72 mmHg Heart Rate 76 /min Height 72 inches 6'0" Weight 266.00 lb BMI (Body Mass Index) 36.1 kg/m2 Respiratory Rate 16 /min Results Test Acquired Date Facility Test Result H/L Range Note Order 08/18/2020 [facility] Carotid Bilateral <pending> Order 04/14/2020 [facility] Echocardiogram <pending> Procedures Date Code Description Status 08/18/2020 58133 Duplex Scan Extracranial Arterie s, Complete Bilateral Study Completed 04/14/2020 12499 Echocardiography, Tranthoracic C omplete Image Documentation Completed Medical Devices Description No Information Available Encounters Type Date Location Provider Dx Diagnosis Office Visit 07/21/2020 9:00a [place] [facility] Bhupendra Fairbanks MD K21.9 Gastro- esophageal reflux disease without esophagitis F41.1 Generalized anxiety disorder Z87.11 Personal history of peptic u lcer disease 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.1 Congenital insufficiency of aortic valve I71.2 Thoracic aortic aneurysm, wi thout rupture Assessments Date Code Description Provider 08/18/2020 I71.2 Thoracic aortic aneurysm, withou t rupture Low Portillo MD 08/18/2020 Q23.1 Congenital insufficiency of aort ic valve Low Portillo MD 07/21/2020 K21.9 Gastro-esophageal reflux disease without [...] Fairbanks MD 05/16/2020 F41.1 Generalized anxiety disorder Tho cynthia Yoanna Fairbanks MD 05/16/2020 Z87.11 Personal history of peptic ulcer disease Bhupendra Fairbanks MD 05/16/2020 I71.2 Thoracic aortic aneurysm, withou t rupture Bhupendra Fairbanks MD 04/14/2020 I71.2 Thoracic aortic aneurysm, withou t rupture Edwin Cosme MD 04/14/2020 I35.0 Nonrheumatic aortic (valve) sten osis Edwin Cosme MD 04/14/2020 Q23.1 Congenital insufficiency of aort ic valve Edwin Cosme MD Plan of Treatment Future Appointment(s):* 09/06/2021 2:00 pm - Bhupendra Fairbanks MD at [place] [facility] * 09/06/2021 1:00 pm - ECHO Schedule (219 and 319) at [place] ECHO Schedule 07/21/2020 - Bhupendra Fairbanks MD* K21.9 Gastro-esophageal reflux disease without esophagitis * F41.1 Generalized anxiety disorder * Z87.11 Personal history of peptic ulcer disease * 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 Continue current medical therapy. 2. I am referring the patient to Dr. Rao Bhatia from a cardiothoracic surgical service to establish given that he has a thoracic aortic aneurysm which may need some intervention in the future if it increases in size. 3. Kennedy has been reminded that we would like to be copied on any other outside clinic visits as well as testing. 4. A carotid duplex and an exercise cardiac stress will also be ordered. 5. I will see him in follow-up in about a year with an echo at the time of the visit or sooner if there is any significant change in his clinical status. Functional Status Description No Information Available Mental Status Description No Information Available Referrals Refer to Dr Reason for Referral Status Appt Date Bhupendra Fairbanks MD Scheduled 08/18/[address], [id number] [phone] Raj Sawant MD Scheduled 08/18/2020 2211 [facility], [id number] [phone]
--- OUTSIDE RECORDS SUMMARY | 2020-11-02 11:08 | CCD | Continuity of Care Document ---
Author Author Kennedy GA M.D. Organization Unknown Address [address] [place] [address], [address] [place] [address] Phone [phone] Care Team Providers Care Dispatcher Maintenance Name Role Phone Saba Peralta M.D. AUTM [phone] Problems Active Problems Provider Date Sensorineural hearing loss, bilateral Sukumar Thompson MD On set: 10/27/2017 Social History Type Date Description Comments Sex Unknown Smokeless Tobacco Never Used Smokeless Tobacco ETOH Use 0-2drinks per day Recreational Drug Use Negative For Denies Drug U se Tobacco Use Start: Unknown Non Smoker Allergies, Adverse Reactions, Alerts Active Allergies Reaction Severity Comments Date Zithromax 06/06/2020 Medications Active Medications SIG Qnty Indications Ordering Provide r Date Flovent HFA 220mcg/Act Aerosol 2 puffs by mouth twice a day to be swallowed ( dont eat or drink atleast 30 minutes after the medication use). 12gm K21.0 Vik Ga M.D. 0 06/06/2020 Simethicone 80mg Chewtabs 1 tablet two to three times a day after meals ( for bloating, take as needed). 90units K21.0 Vik Ga M.D. 06/06/2020 Lexapro (Escitalopram) 20mg Tablet s 1tab po qd Unknown Alprazolam (Xanax) 0.5mg Tablets 1tab po tid prn Unknown Pantoprazole Sodium 40mg Tablets D R daily -- one tablet in morning 1/2 hour before breakfast. ( total course of 6 weeks then taper off) 60tabs Vik Ga M.D. Terbinafine HCL 250mg Tablets 1tab po qd Unknown Immunizations Description No Information Available Vital Signs Date Vital Result Comment 09/13/2020 10:15am BP Systolic 126 mmHg BP Diastolic 74 mmHg Height 73 inches 6'1" Weight 263.00 lb BMI (Body Mass Index) 34.7 kg/m2 [place] Body Weight 184 lb Weight 119.297 kg BSA (Body Surface Area) 2.42 m2 06/06/2020 10:43am BP Systolic 128 mmHg BP Diastolic 72 mmHg Height 73 inches 6'1" Weight 268.00 lb BMI (Body Mass Index) 35.4 kg/m2 [place] Body Weight 184 lb Weight 121.565 kg BSA (Body Surface Area) 2.44 m2 Results Description No Information Available Procedures Description No Information Available Medical Devices Description No Information Available Encounters Type Date Location Provider Dx Diagnosis Office Visit 06/06/2020 10:30a [facility] Ridge Ga M.D. K21.0 Gastro-esophageal reflux dis ease with esophagitis R13.10 Dysphagia, unspecified K62.5 Hemorrhage of anus and rectu m R93.3 Abnormal findings on dx imag ing of prt digestive tract Assessments Date Code Description Provider 06/06/2020 K21.0 Gastro-esophageal reflux disease with esophagitis Vik Ga M.D. 06/06/2020 R13.10 Dysphagia, unspecified Vik Ga M.D. 06/06/2020 K62.5 Hemorrhage of anus and rectum Urvashi Ga M.D. 06/06/2020 R93.3 Abnormal findings on diagnostic imaging of other parts of digestive tract Vik Ga M.D. Plan of Treatment No Information Available Functional Status Description No Information Available Mental Status Description No Information Available Referrals Description No Information Available
--- OUTSIDE RECORDS SUMMARY | 2020-11-02 11:08 | CCD | Continuity of Care Document ---
Author Author Kennedy PORTILLO MD Organization Unknown Address [address] [place] [address] Phone [phone] Care Team Providers Care Public Relations Assistant Name Role Phone Saba Peralta MD AUTM [phone] Raj Sawant MD AUTM [phone] Problems Active Problems Provider Date Bicuspid aortic [...] Echocardiogram <pending> Procedures Date Code Description Status 08/21/2020 98748 Echocardiography Complete W/Out Spectral/Color Doppler Completed 08/18/2020 71879 Duplex Scan Extracranial Arterie s, Complete Bilateral Study Completed 04/14/2020 27234 Echocardiography, Tranthoracic C omplete Image Documentation Completed Medical Devices Description No Information Available Encounters Type Date Location Provider Dx Diagnosis Office Visit 07/21/2020 9:00a [place] [facility] Bhupendra Fairbanks MD K21.9 Gastro- esophageal reflux disease without esophagitis F41.1 Generalized anxiety disorder Z87.11 Personal history of peptic u lcer disease 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.1 Congenital insufficiency of aortic valve I71.2 Thoracic aortic aneurysm, wi thout rupture Assessments Date Code Description Provider 08/21/2020 I71.2 Thoracic aortic aneurysm, withou t [...] Cosme MD Plan of Treatment Future Appointment(s):* 10/11/2020 12:45 pm - Malcolm PALOMARES (903) at [place] [facility] * 09/06/2021 2:00 pm - Bhupendra Fairbanks MD at [place] [facility] * 09/06/2021 1:00 pm - ECHO Schedule (219 and 319) at [place] ECHO Schedule 07/21/2020 - Bhupendra Fairbanks MD* [...] Appt Date Bhupendra Fairbanks MD Scheduled 08/18/[address] [place] [address] 200 [facility], [id number] [phone] Raj Sawant MD Scheduled 08/18/[address] [place] [address], [address] [phone]
--- OUTSIDE RECORDS SUMMARY | 2020-11-02 11:08 | CCD | Continuity of Care Document ---
Author Author Kennedy DOCKERY MD Organization Unknown Address [address] [place] [address] Phone [phone] Care Team Providers Care Sled Maker Name Role Phone Saba Peralta MD AUTM [phone] Raj Sawant MD AUTM [phone] Problems Active Problems Provider Date Bicuspid aortic [...] Test Result H/L Range Note Order 08/21/2020 [facility] Echocardiogram Limited <pending> Order 08/18/2020 [facility] Nuclear Exercise/Myoview <pending> Order 08/18/2020 [facility] Carotid Bilateral <pending> Order 04/14/2020 [facility] Echocardiogram <pending> Procedures Date Code Description Status 08/21/2020 17609 Echocardiography Complete W/Out Spectral/Color Doppler Completed 08/18/2020 68195 Duplex Scan Extracranial Arterie s, Complete Bilateral Study Completed 08/18/2020 64379 Cardiovascular Stress Test W/Int erpretation & Report Completed 08/18/2020 51238 Myocardial Perfusion Imaging Tomographic (Spect) Multiple Studies Completed 04/14/2020 07212 Echocardiography, Tranthoracic C omplete Image Documentation Completed Medical Devices Description No Information Available Encounters Type Date Location Provider Dx Diagnosis Office Visit 07/21/2020 9:00a [place] [facility] Bhupendra Fairbanks MD K21.9 Gastro- esophageal reflux disease without esophagitis F41.1 Generalized anxiety disorder Z87.11 Personal history of peptic u lcer disease 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.1 Congenital insufficiency of aortic valve I71.2 Thoracic aortic aneurysm, wi thout rupture Assessments Date Code Description Provider 08/21/2020 I71.2 Thoracic aortic aneurysm, withou t rupture Jonn Dockery MD 08/21/2020 Q23.1 Congenital insufficiency of aort ic valve Jonn Dockery MD 08/21/2020 K21.9 Gastro-esophageal reflux disease without esophagitis Jonn Dockery MD 08/18/2020 I71.2 Thoracic aortic aneurysm, withou t rupture Jonn Dockery MD 08/18/2020 I71.2 Thoracic aortic aneurysm, withou t rupture Low Portillo MD 08/18/2020 Q23.1 Congenital insufficiency of aort ic valve Jonn Dockery MD 08/18/2020 Q23.1 Congenital insufficiency of aort [...] 12:45 pm - Malcolm PALOMARES (903) at [place] [facility] * 09/06/2021 2:00 pm - Bhupendra Fairbanks MD at [place] [facility] * 09/06/2021 1:00 pm - ECHO Schedule (219 and 319) at [place] ECHO Schedule 07/21/2020 - Bhupendra Fairbanks MD* [...] Appt Date Bhupendra Fairbanks MD Scheduled 08/18/2020 [facility] [address], [id number] [phone] Raj Sawant MD Scheduled 08/18/2020 [facility], [id number] [phone]
--- OUTSIDE RECORDS SUMMARY | 2020-11-02 11:08 | CCD | Continuity of Care Document ---
Author Author Kennedy ZUNIGA MD Organization Unknown Address [address] [place] [address] Phone [phone] Care Team Providers Care Cash Accountant Name Role Phone Saba Peralta MD AUTM [phone] Raj Sawant MD AUTM [phone] Problems Active Problems Provider Date Bicuspid aortic [...] Test Result H/L Range Note Order 08/21/2020 [facility]iology Echocardiogram Limited <pending> Order 08/18/2020 [facility] Nuclear Exercise/Myoview <pending> Order 08/18/2020 [facility] Carotid Bilateral <pending> Order 04/14/2020 [facility] Echocardiogram <pending> Procedures Date Code Description Status 08/21/2020 42041 Echocardiography Complete W/Out Spectral/Color Doppler Completed 08/18/2020 01891 Duplex Scan Extracranial Arterie s, Complete Bilateral Study Completed 08/18/2020 85132 Cardiovascular Stress Test W/Int erpretation & Report Completed 08/18/2020 60005 Myocardial Perfusion Imaging Tomographic (Spect) Multiple Studies Completed 04/14/2020 95907 Echocardiography, Tranthoracic C omplete Image Documentation Completed Medical Devices Description No Information Available Encounters Type Date Location Provider Dx Diagnosis Office Visit 07/21/2020 9:00a [place] [facility] Bhupendra Fairbanks MD K21.9 Gastro- esophageal [...] 12:45 pm - Malcolm PALOMARES (903) at [place] [facility] * 09/06/2021 2:00 pm - Bhupendra Fairbanks MD at [place] [facility] * 09/06/2021 1:00 pm - ECHO Schedule (219 and 319) at [place] ECHO Schedule 07/21/2020 - Bhupendra Fairbanks MD* [...] Appt Date Bhupendra Fairbanks MD Scheduled 08/18/2020 [facility]ly named [facility] 200 [facility], [id number] [phone] Raj Sawant MD Scheduled 08/18/2020 Formerly named [facility], [id number] [phone]
--- OUTSIDE RECORDS SUMMARY | 2020-11-02 11:08 | CCD | Continuity of Care Document ---
Author Author Kennedy ZUNIGA MD Organization Unknown Address [address] [place] [address] Phone [phone] Care Team Providers Care Creel Clerk Name Role Phone Saba Peralta MD AUTM [phone] Problems Active Problems Provider Date Bicuspid aortic [...] H/L Range Note Order 08/18/2020 [facility] Nuclear Exercise/Myoview <pending> Order 08/18/2020 [facility] Carotid Bilateral <pending> Order 04/14/2020 [facility] Echocardiogram <pending> Procedures Date Code Description Status 08/18/2020 77026 Duplex Scan Extracranial Arterie s, Complete Bilateral Study Completed 04/14/2020 58224 Echocardiography, Tranthoracic C omplete Image Documentation Completed Medical Devices Description No Information Available Encounters Type Date Location Provider Dx Diagnosis Office Visit 07/21/2020 9:00a [place] [facility] Bhupendra Fairbanks MD K21.9 Gastro- esophageal [...] MD 06/20/2020 I35.0 Nonrheumatic aortic (valve) sten israelis Bhupendra Fairbanks MD 06/20/2020 R01.1 Cardiac murmur, [...] MD 04/14/2020 I35.0 Nonrheumatic aortic (valve) sten israelis Edwin Cosme MD 04/14/2020 Q23.1 Congenital insufficiency of aort ic valve Edwin Cosme MD Plan of Treatment Future Appointment(s):* 09/06/2021 2:00 pm - Bhupendra Fairbanks MD at [place] [facility] * 09/06/2021 1:00 pm - ECHO Schedule (219 and 319) at [place] ECHO Schedule 07/21/2020 - Bhupendra Fairbanks MD* [...] MD Scheduled 08/18/2020 2211 [facility] 200 [facility], [address] [phone] Raj Sawant MD Scheduled 08/18/2020 2211 [facility], [address] [phone]
--- OUTSIDE RECORDS SUMMARY | 2020-11-02 11:08 | CCD | Continuity of Care Document ---
Author Author Kennedy FAIRBANKS MD Organization Unknown Address [address] [place] [address] Phone [phone] Care Team Providers Care Bleaching Machine Operator Name Role Phone Saba Peralta MD AUTM [phone] Problems Active Problems Provider Date Bicuspid aortic [...] Facility Test Result H/L Range Note Order 04/14/2020 [facility] Echocardiogram <pending> Procedures Date Code Description Status 04/14/2020 69866 Echocardiography, Tranthoracic C omplete Image Documentation Completed Medical Devices Description No Information Available Encounters Type Date Location Provider Dx Diagnosis Office Visit 07/21/2020 9:00a [place] [facility] Bhupendra Fairbanks MD K21.9 Gastro- esophageal reflux disease without esophagitis F41.1 Generalized anxiety disorder Z87.11 Personal history of peptic u lcer disease 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.1 Congenital insufficiency of aortic valve I71.2 Thoracic aortic aneurysm, wi thout rupture Assessments Date Code Description Provider 07/21/2020 K21.9 Gastro-esophageal reflux disease without esophagitis [...] 2:00 pm - Bhupendra Fairbanks MD at [place] [facility] * 09/06/2021 1:00 pm - ECHO Schedule (219 and 319) at [place] ECHO Schedule * 08/18/2020 9:00 am - Vascular Schedule 2 (601) at [place] [facility] * 08/18/2020 10:00 am - Nuclear Studies at [place] Nuclear Studies 07/21/2020 - Bhupendra Fairbanks MD* K21.9 Gastro-esophageal [...] Appt Date Bhupendra Fairbanks MD Scheduled 08/18/20201 [facility] 200 [facility], [id number] [phone] Raj Sawant MD Scheduled 08/18/2020 2211 [facility], [id number] [phone]
--- OUTSIDE RECORDS SUMMARY | 2020-11-02 11:08 | CCD | Continuity of Care Document ---
Author Kennedy Rainey DPcR Organization Unknown Address [address] [place] [address], [facility] 2 [place] [address] Phone [phone] Problems Active Problems Provider Date Onychomycosis Dalton [...] Succinate ER 25mg Tablets ER 24HR [facility] Medications Administered in Office Medication SIG Qnty Indications Ordering Provider Date Inject Triamcinolone Acetonide 10 ML, ND C 2856-7223-40 Injection Dalton barrrea DPM 08/07/2020 Inject Dexamthosone Phosphate 95615-607- 30 Injection Dalton Dawn, YONY 020 Immunizations Description No Information Available Vital Signs Date Vital Result Comment 07/01/2019 10:26am Height 72 inches 6'0" Weight 255.00 lb BP Systolic 110 mmHg BP Diastolic 64 mmHg Heart Rate 81 /min BMI (Body Mass Index) 34.6 kg/m2 Results Description No Information Available Procedures Date Code Description Status 08/07/202087344 Inject Tendon/Ligament/Cyst Comp leted 06/26/2020 88522 Strapping Foot Or Ankle Complete d 03/28/2020 89394 Avulsion Nail Plate Simple Singl e Completed Medical Devices Description No Information Available Encounters Type Date Location Provider Dx Diagnosis Office Visit 08/07/2020 2:30p [place] [facility] Dalton Dawn DPM 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 fascial fibromatosis Office Visit 06/26/2020 2:30p [place] [facility] Dalton Dawn DPM 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 fascial fibromatosis B35.1 Tinea unguium Office Visit 05/15/2020 2:30p [place] [facility] Dalton Dawn DPM B35.1 Tinea unguium 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 fascial fibromatosis Office Visit 03/28/2020 9:45a [place] [facility] Dalton Dawn DPM L03.032 Cellulitis of left toe L60.0 Ingrowing nail B35.1 Tinea unguium Assessments Date Code Description Provider 08/07/2020 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 fascial fibromatosis And lesli Dawn DPM 06/26/2020 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 fascial fibromatosis And lesli Dawn DPM 06/26/2020 B35.1 Tinea unguium Dalton Dawn DPM 05/15/2020 B35.1 Tinea unguium Dalton Dawn DPM 05/15/2020 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 fascial fibromatosis And lesli Dawn DPM 03/28/2020 L03.032 Cellulitis of left toe Dalton Dawn DPM 03/28/2020 L60.0 Ingrowing nail Dalton Dawn DPM 03/28/2020 B35.1 Mary Lou lawrenceuiamanda Dalton Dawn DPM Plan of Treatment Future Appointment(s):* 09/06/2020 2:15 pm - Dalton Dawn DPM at [facility] Functional Status Description No Information Available Mental Status Description No Information Available Referrals Description No Information Available
--- OUTSIDE RECORDS SUMMARY | 2020-11-02 11:08 | CCD | Continuity of Care Document ---
Author Author Kennedy DOCKERY MD Organization Unknown Address [address] [place] [address] Phone [phone] Care Team Providers Care Inside Sales Advertising Executive Name Role Phone Saba Peralta MD AUTM [phone] Problems Active Problems Provider Date Bicuspid aortic [...] <pending> Procedures Date Code Description Status 08/21/2020 13301 Echocardiography Complete W/Out Spectral/Color Doppler Completed 08/18/2020 82010 Duplex Scan Extracranial Arterie s, Complete Bilateral Study Completed 04/14/2020 07586 Echocardiography, Tranthoracic C omplete Image Documentation Completed Medical Devices Description No Information Available Encounters Type Date Location Provider Dx Diagnosis Office Visit 07/21/2020 9:00a [place] [facility] Bhupendra Fairbanks MD K21.9 Gastro- esophageal [...] Fairbanks MD 07/21/2020 F41.1 Generalized anxiety disorder Tho cynthia Fairbanks MD 07/21/2020 Z87.11 Personal history of [...] 2:00 pm - Bhupendra Fairbanks MD at [place] [facility] * 09/06/2021 1:00 pm - ECHO Schedule (219 and 319) at [place] ECHO Schedule 07/21/2020 - Bhupendra Fairbanks MD* [...] Date Bhupendra Fairbanks MD Scheduled 08/18/[address], [id number] [phone] Raj Sawant MD Scheduled 08/18/2020 2211 [facility], [address] [phone]
--- OUTSIDE RECORDS SUMMARY | 2020-11-02 11:09 | CCD ---
Author Author [facility] Organization [facility] Address Unknown Phone Unavailable Care Team Providers Care Bioinformatics Analyst Name Role Phone Leatha PANDEY DPM Unavailable Unavailable Leatha PANDEY DPM Unavailable Unavailable Leatha PANDEY DPM Unavailable Unavailable Leatha PANDEY DPM Unavailable Unavailable Leatha PANDEY DPM Unavailable Unavailable Leatha PANDEY DPM Unavailable Unavailable Leatha PANDEY DPM Unavailable Unavailable Leatha PANDEY DPM Unavailable Unavailable Leatha PANDEY DPM Unavailable Unavailable Leatha PANDEY DPM Unavailable Unavailable Leatha PANDEY DPM Unavailable Unavailable Leatha PANDEY DPM Unavailable Unavailable Leatha PANDEY DPM Unavailable Unavailable Leatha PANDEY DPM Unavailable Unavailable Leatha PANDEY DPM Unavailable Unavailable Leatha PANDEY DPM Unavailable Unavailable Leatha PANDEY DPM Unavailable Unavailable Leatha PANDEY DPM Unavailable Unavailable Leatha PANDEY DPM Unavailable Unavailable MAJAK, R NEDA DPM Unavailable Unavailable MAJAK, R NEDA DPM Unavailable Unavailable MAJAK, R NEDA DPM Unavailable Unavailable MAJAK, R NEDA DPM Unavailable Unavailable MAJAK, R NEDA DPM Unavailable Unavailable MAJAK, R NEDA DPM Unavailable Unavailable MAJAK, R NEDA DPM Unavailable Unavailable MAJAK, R NEDA DPM Unavailable Unavailable MAJAK, R NEDA DPM Unavailable Unavailable MAJAK, R NEDA DPM Unavailable Unavailable MAJAK, R NEDA DPM Unavailable Unavailable El-Amir, G Raj MD Unavailable Unavailable El-Amir, G Raj MD Unavailable Unavailable El-Amir, G Raj MD Unavailable Unavailable El-Amir, G Raj MD Unavailable Unavailable El-Amir, G Raj MD Unavailable Unavailable El-Amir, G Raj MD Unavailable Unavailable El-Amir, G Raj MD Unavailable Unavailable El-Amir, G Raj MD Unavailable Unavailable El-Amir, G Raj MD Unavailable Unavailable El-Amir, G Raj MD Unavailable Unavailable El-Amir, G Raj MD Unavailable Unavailable El-Amir, G Raj MD Unavailable Unavailable El-Amir, G Raj MD Unavailable Unavailable El-Amir, G Raj MD Unavailable Unavailable El-Amir, G Raj MD Unavailable Unavailable El-Amir, G Raj MD Unavailable Unavailable El-Amir, G Raj MD Unavailable Unavailable El-Amir, G Raj MD Unavailable Unavailable El-Amir, G Raj MD Unavailable Unavailable El-Amir, G Raj MD Unavailable Unavailable El-Amir, G Raj MD Unavailable Unavailable El-Amir, G Raj MD Unavailable Unavailable El-Amir, G Raj MD Unavailable Unavailable El-Amir, G Raj MD Unavailable Unavailable El-Amir, G Raj MD Unavailable Unavailable El-Amir, G Raj MD Unavailable Unavailable El-Amir, G Raj MD Unavailable Unavailable El-Amir, G Raj MD Unavailable Unavailable El-Amir, G Raj MD Unavailable Unavailable El-Amir, G Raj MD Unavailable Unavailable El-Amir, G Raj MD Unavailable Unavailable El-Amir, G Raj MD Unavailable Unavailable El-Amir, G Raj MD Unavailable Unavailable El-Amir, G Raj MD Unavailable Unavailable El-Amir, Paulie Anthony MD Unavailable Unavailable El-Amir, G Raj PALOMARES Unavailable Unavailable El-Amir, G Raj PALOMARES Unavailable Unavailable El-Amir, G Raj MD Unavailable Unavailable El-Amir, G Raj MD Unavailable Unavailable El-Amir, G Raj MD Unavailable Unavailable El-Amir, G Raj PALOMARES Unavailable Unavailable El-Amir, G Raj PALOMARES Unavailable Unavailable El-Amir, G Raj PALOMARES Unavailable Unavailable Twin-Amir, Paulie Anthony MD Unavailable Unavailable Yoanna FAIRBANKS MD Unavailable Unavailable Yoanna FAIRBANKS MD Unavailable Unavailable Yoanna FAIRBANKS MD Unavailable Unavailable Yoanna FAIRBANKS MD Unavailable Unavailable Yoanna FAIRBANKS MD Unavailable Unavailable Yoanna FAIRBANKS MD Unavailable Unavailable Yoanna FAIRBANKS MD Unavailable Unavailable Yoanna FAIRBANKS MD Unavailable Unavailable Yoanna FAIRBANKS MD Unavailable Unavailable Yoanna FAIRBANKS MD Unavailable Unavailable Yoanna FAIRBANKS MD Unavailable Unavailable Yoanna FAIRBANKS MD Unavailable Unavailable Yoanna FAIRBANKS MD Unavailable Unavailable Yoanna FAIRBANKS MD Unavailable Unavailable Yoanna FAIRBANKS MD Unavailable Unavailable Yoanna FAIRBANKS MD Unavailable Unavailable Yoanna FAIRBANKS MD Unavailable Unavailable Yoanna FAIRBANKS MD Unavailable Unavailable Yoanna FAIRBANKS MD Unavailable Unavailable Yoanna FAIRBANKS MD Unavailable Unavailable Yoanna FAIRBANKS MD Unavailable Unavailable Yoanna FAIRBANKS MD Unavailable Unavailable Yoanna FAIRBANKS MD Unavailable Unavailable Yoanna FAIRBANKS MD Unavailable Unavailable Yoanna FAIRBANKS MD Unavailable Unavailable Yoanna FAIRBANKS MD Unavailable Unavailable Yoanna FAIRBANKS MD Unavailable Unavailable Yoanna FAIRBANKS MD Unavailable Unavailable Yoanna FAIRBANKS MD Unavailable Unavailable Yoanna FAIRBANKS MD Unavailable Unavailable Yoanna FAIRBANKS MD Unavailable Unavailable Yoanna FAIRBANKS MD Unavailable Unavailable Yoanna FAIRBANKS MD Unavailable Unavailable Yoanna FAIRBANKS MD Unavailable Unavailable Yoanna FAIRBANKS MD Unavailable Unavailable Yoanna FAIRBANKS MD Unavailable Unavailable Yoanna FAIRBANKS MD Unavailable Unavailable Yoanna FAIRBANKS MD Unavailable Unavailable Yoanna FAIRBAKNS MD Unavailable Unavailable Yoanna FAIRBANKS MD Unavailable Unavailable Yoanna FAIRBANKS MD Unavailable Unavailable Yoanna FAIRBANKS MD Unavailable Unavailable Yoanna FAIRBANKS MD Unavailable Unavailable Yoanna FAIRBANKS MD Unavailable Unavailable Yoanna FAIRBANKS MD Unavailable Unavailable Yoanna FAIRBANKS MD Unavailable Unavailable Yoanna FAIRBANKS MD Unavailable Unavailable Yoanna FAIRBANKS MD Unavailable Unavailable Yoanna FAIRBANKS MD Unavailable Unavailable Yoanna FAIRBANKS MD Unavailable Unavailable Danii GA MD Unavailable Unavailable Danii GA MD Unavailable Unavailable Danii GA MD Unavailable Unavailable Danii GA MD Unavailable Unavailable Danii GA MD Unavailable Unavailable Danii GA MD Unavailable Unavailable Danii GA MD Unavailable Unavailable Danii GA MD Unavailable Unavailable Danii GA MD Unavailable Unavailable Danii GA MD Unavailable Unavailable Danii GA MD Unavailable Unavailable Danii GA MD Unavailable Unavailable Danii GA MD Unavailable Unavailable Danii GA MD Unavailable Unavailable Danii GA MD Unavailable Unavailable Danii GA MD Unavailable Unavailable Danii GA MD Unavailable Unavailable Danii GA MD Unavailable Unavailable Danii GA MD Unavailable Unavailable Danii GA MD Unavailable Unavailable Danii GA MD Unavailable Unavailable Danii GA MD Unavailable Unavailable Danii GA MD Unavailable Unavailable Danii GA MD Unavailable Unavailable Danii GA MD Unavailable Unavailable Danii GA MD Unavailable Unavailable Danii GA MD Unavailable Unavailable Danii GA MD Unavailable Unavailable Danii GA MD Unavailable Unavailable Danii GA MD Unavailable Unavailable Danii GA MD Unavailable Unavailable Danii GA MD Unavailable Unavailable Danii GA MD Unavailable Unavailable Lanny Putnam Low PA Unavailable Unavailable Lanny Putnam Low PA Unavailable Unavailable Jersey D Low PA Unavailable Unavailable Jersey D Low PA Unavailable Unavailable Jersey, D Low PA Unavailable Unavailable Jersey, D Low PA Unavailable Unavailable Jersey, D Low PA Unavailable Unavailable Jersey, D Low PA Unavailable Unavailable Jersey, D Low PA Unavailable Unavailable Jersey, D Low PA Unavailable Unavailable Jersey, D Low PA Unavailable Unavailable Jersey, D Low PA Unavailable Unavailable Jersey, D Low PA Unavailable Unavailable Jersey, D Low PA Unavailable Unavailable Jersey, D Low PA Unavailable Unavailable Jersey, D Low PA Unavailable Unavailable Jersey, D Low PA Unavailable Unavailable Jersey, D Low PA Unavailable Unavailable Jersey, D Low PA Unavailable Unavailable Jersey, D Low PA Unavailable Unavailable Jersey, D Low PA Unavailable Unavailable Jersey, D Low PA Unavailable Unavailable Jersey, D Low PA Unavailable Unavailable Jersey, D Low PA Unavailable Unavailable Jersey, D Low PA Unavailable Unavailable Jersey, D Low PA Unavailable Unavailable Jersey, D Low PA Unavailable Unavailable Jersey, D Low PA Unavailable Unavailable Jersey, D Low PA Unavailable Unavailable Jersey, D Low PA Unavailable Unavailable Jersey, D Low PA Unavailable Unavailable Jersey, D Low PA Unavailable Unavailable Jersey, D Low PA Unavailable Unavailable Jersey, D Low PA Unavailable Unavailable Jersey, D Low PA Unavailable Unavailable Jersey, D Low PA Unavailable Unavailable Jersey, D Low PA Unavailable Unavailable Jersey, D Low PA Unavailable Unavailable Jersey, D Low PA Unavailable Unavailable Jersey, D Low PA Unavailable Unavailable Jersey, D Low PA Unavailable Unavailable Jersey, D Low PA Unavailable Unavailable Jersey, D Low PA Unavailable Unavailable Jersey, D Low PA Unavailable Unavailable Jersey, D Low PA Unavailable Unavailable Jersey, D Low PA Unavailable Unavailable Jersey, D Low PA Unavailable Unavailable Jersey, D Low PA Unavailable Unavailable Jersey, D Low PA Unavailable Unavailable Jersey, D Low PA Unavailable Unavailable Jersey, D Low PA Unavailable Unavailable Jersey, D Low PA Unavailable Unavailable Jersey, D Low PA Unavailable Unavailable Jersey, D Low PA Unavailable Unavailable Jersey, D Low PA Unavailable Unavailable Jersey, D Low PA Unavailable Unavailable Jersey, D Low PA Unavailable Unavailable Jersey, D Low PA Unavailable Unavailable Jersey, D Low PA Unavailable Unavailable [place], D Low PA Unavailable Unavailable [place], D Low PA Unavailable Unavailable [place], D Low PA Unavailable Unavailable [place], D Low PA Unavailable Unavailable Re-disclosure Warning The records that you are about to access may contain information from federally-assisted alcohol or drug abuse programs. If such information is present, then the following federally mandated warning applies: This information has been disclosed to you from records protected by federal confidentiality rules (42 CFR part 2). The federal rules prohibit you from making any further disclosure of this information unless further disclosure is expressly permitted by the written consent of the person to whom it pertains or as otherwise permitted by 42 CFR part 2. A general authorization for the release of medical or other information is NOT sufficient for this purpose. The Federal rules restrict any use of the information to criminally investigate or prosecute any alcohol or drug abuse patient.The records that you are about to access may contain highly sensitive health information, the redisclosure of which is protected by Article 27-F of the [facility] Public Health law. If you continue you may have access to information: Regarding HIV / AIDS; Provided by facilities licensed or operated by the [facility] Office of Mental Health; or Provided by the [facility] Office for People With Developmental Disabilities. If such information is present, then the following [facility] mandated warning applies: This information has been disclosed to you from confidential records which are protected by state law. State law prohibits you from making any further disclosure of this information without the specific written consent of the person to whom it pertains, or as otherwise permitted by law. Any unauthorized further disclosure in violation of state law may result in a fine or mcc sentence or both. A general authorization for the release of medical or other information is NOT sufficient authorization for further disc losure. Allergies and Adverse Reactions Type Description Substance Reaction Status Data Source(s ) DRUG INGREDI AZITHROMYCIN Azithromycin [facility] SYSTEMIC NO ALLERGIES ON FILE NO ALLERGIES ON FILE [facility] Drug Allergy Drug Allergy NKDA [facility] Family History Family Member Name Family Member Gender Family Member Status Date o f Status Description Data Source(s) Unknown Male Problem [facility] Unknown Unknown Problem [facility] ([facility] Encounters Encounter Providers Location Date Indications Data Source(s ) Attender: Raj Callahan MD [facility] 10/18/2020 03:38:31 PM EST [facility] Outpatient Attender: ELIECER FAIRBANKS MD [facility] 02:00:00 PM EST [facility] ([facility]) Office Visit Attender: NEDA PANDEY [facility] Office 10/06 09:45:00 AM EST [facility] ([facility] Office Visit Attender: NEDA PANDEY [facility] Office 11/2019 01:15:00 PM EST [facility] ([facility] OUTPATIENT Attender: Raj Callahan MD [facility] 08/06 11:28:33 AM EST - 08/18/2020 12:36:23 PM EST [facility] Office Visit Attender: NEDA PANDEY [facility] Office 11/2019 01:30:00 PM EST [facility] ([facility] OUTPATIENT [facility] 07/25/2020 01:08:25 PM EDT [facility] OUTPATIENT [facility] 07/25/2020 01:05:16 PM EDT [facility] Attender: Raj Callahan MD [facility] 07/25/2020 01:04:20 PM EDT [facility] Attender: Raj Callahan MD [facility] 07/25/2020 01:03:02 PM EDT [facility] Attender: Raj Callahan MD [facility] 07/25/2020 01:01:45 PM EDT [facility] OUTPATIENT [facility] 07/25/2020 12:55:28 PM EDT [facility] OUTPATIENT [facility] 07/25/2020 12:36:39 PM EDT [facility] Outpatient Attender: ELIECER FAIRBANKS MD [facility] 09:00:00 AM EDT [facility] Office Visit Attender: NEDA PANDEY [facility] Office 06/07 02:30:00 PM EDT [facility] ([facility] Outpatient Attender: DARYN Hernandez/Donna/Shane el/Reindl 06/06/2020 10:30:00 AM EDT [facility] ([facility] Office Visit Attender: NEDA PANDEY [facility] Office 05/06 02:30:00 PM EDT [facility] ([facility] Outpatient Attender: NEDA PANDEY [facility] [place] Office 03/07 09:45:00 AM EDT [facility] ([facility] Outpatient Referrer: Low PRETTY 10/19/2019 08:53:00 PM EST [facility] Medications Medication Brand Name Start Date Product Form Dose Route Admi nistrative Instructions Pharmacy Instructions Status Indications Reaction Description Data Source(s) Escitalopram 10 MG Oral Tablet ESCITALOPRAM OXALATE 09/26/2020 1 2:00:00 AM EST tablet 30 TAKE ONE TABLET BY MOUTH EVERY D AY TAKE ONE TABLET BY MOUTH EVERY DAY SOLD: 09/27/2020 [facility] Alprazolam 0.5 MG Oral Tablet ALPRAZOLAM 09/26/2020 12:00:00 AM EST t ablet 120 TAKE ONE TABLET BY MOUTH FOUR TIMES A DAY MAXIMUM MARY Y DOSE = 4 TAKE ONE TABLET BY MOUTH FOUR TIMES A DAY MAXIMUM DAILY DOSE = 4 SOLD: 09/27/2020 [facility] pantoprazole 40 MG Delayed Release Oral Tablet PANTOPRAZOLE SODIUM 09/26/2020 12:00:00 AM EST tablet,delayed release (DR/EC) 60 T LAURY ONE TABLET BY MOUTH TWICE A DAY TAKE ONE TABLET BY MOUTH TWICE A DAY SOLD: 09/27/2020 [facility] Inject Dexamthosone Phosphate 66307-096-90 09/06/2020 12:00:00 A M EST completed [facility] ([facility] Medication administered onsite Inject Triamcinolone Acetonide 10 ML, [facility] [id number] 09/06/2020 12:00:00 AM EST completed [facility] Medication administered onsite 0.1 % 08/24/2020 12:00:00 AM EST ointment 80 APPLY TO AFFECTED AREA(S) OF TRUNK, LEG, HANDS, AND FEET TWO TIMES A DAY FOR 2 WEEKS. APPLY TO AFFECTED AREA(S) OF TRUNK, LEG, HANDS, AND FEET TWO TIMES A DAY FOR 2 WEEKS. SOLD: 09/03/2020 [facility] Escitalopram 10 MG Oral Tablet ESCITALOPRAM OXALATE 08/14/2020 1 2:00:00 AM EST tablet 30 TAKE ONE TABLET BY MOUTH EVERY D AY TAKE ONE TABLET BY MOUTH EVERY DAY SOLD: 08/22/2020 [facility] Alprazolam 0.5 MG Oral Tablet ALPRAZOLAM 08/14/2020 12:00:00 AM EST t ablet 120 TAKE ONE TABLET BY MOUTH FOUR TIMES A DAY MAXIMUM MARY Y DOSE = 4 TAKE ONE TABLET BY MOUTH FOUR TIMES A DAY MAXIMUM DAILY DOSE = 4 SOLD: 08/22/2020 [facility] Inject Triamcinolone Acetonide 10 ML, [facility] [id number] 08/07/2020 12:00:00 AM EST completed [facility] ([facility] Medication administered onsite Inject Dexamthosone Phosphate 33609-720-35 08/07/2020 12:00:00 A M EST completed [facility] Medication administered onsite 0.1 % 08/07/2020 12:00:00 AM EST ointment 30 APPLY TO AFFECTED AREAS OF BUTTOCKS TWO TIMES A DAY 2 WEEKS ON 2 WEEKS OFF APPLY TO AFFECTED AREAS OF BUTTOCKS TWO TIMES A DAY 2 WEEKS ON 2 WEEKS OFF SOLD: 08/09/2020 [facility] Alprazolam 0.5 MG Oral Tablet ALPRAZOLAM 07/12/2020 12:00:00 AM EDT t ablet 120 TAKE ONE TABLET BY MOUTH FOUR TIMES A DAY MAXIMUM MARY Y DOSE = 4 TABLETS TAKE ONE TABLET BY MOUTH FOUR TIMES A DAY MAXIMUM DAILY DOSE = 4 TABLETS SOLD: 07/13/2020 [facility] Escitalopram 10 MG Oral Tablet ESCITALOPRAM OXALATE 07/12/2020 1 2:00:00 AM EDT tablet 30 TAKE ONE TABLET BY MOUTH EVERY D AY TAKE ONE TABLET BY MOUTH EVERY DAY SOLD: 07/13/2020 [facility] pantoprazole 40 MG Delayed Release Oral Tablet PANTOPRAZOLE SODIUM 07/12/2020 12:00:00 AM EDT tablet,delayed release (DR/EC) 60 T LAURY ONE TABLET BY MOUTH TWICE A DAY TAKE ONE TABLET BY MOUTH TWICE A DAY SOLD: 07/13/2020 [facility] 5 % 06/23/2020 12:00:00 AM EDT cream in packet 24 APPLY ONE HALF PACKET NIGHTLY TO WART WASH OFF IN THE MORNING APPLY ONE HALF PACKET NIGHTLY TO WART WASH OFF IN THE MORNING SOLD: 06/28/2020 [facility] 220 mcg/actuation 06/07/2020 12:00:00 AM EDT HFA aerosol inh aler 12 INHALE TWO PUFFS BY MOUTH TWICE A DAY TO BE SWALLOWED ( DON'T EAT OR DRINK AT LEAST 30 MINUTES AFTER THE MEDICATION USE) INHALE TWO PUFFS BY MOUTH TWICE A DAY TO BE SWALLOWED ( DON'T EAT OR DRINK AT LEAST 30 MINUTES AFTER THE MEDICATION USE) SOLD: 06/07/2020 [facility] 40 mg 06/06/2020 12:00:00 AM EDT tablet,delayed release (DR/EC) 60 TAKE ONE TABLET BY MOUTH EVERY DAY 1/2 HOUR BEFORE BREAKFAST FOR 6 WEEKS THEN TAPER OFF TAKE ONE TABLET BY MOUTH EVERY DAY 1/2 HOUR BEFORE BREAKFAST FOR 6 WEEKS THEN TAPER OFF SOLD: 06/07/2020 [facility] 120 ACTUAT Fluticasone propionate 0.22 MG/ACTUAT Meter ed Dose Inhaler [Flovent] Flovent HFA 06/06/2020 12:00:00 AM EDT ORAL active [facility] ([facility] ) Simethicone 80 MG Chewable Tablet Simethicone 06/06/2020 12:00:00 AM E DT active [facility] ([facility] ) 250 mg 06/06/2020 12:00:00 AM EDT tablet 45 TAKE ONE TABLET BY MOUTH EVERY DAY TAKE ONE TABLET BY MOUTH EVERY DAY SOLD: 06/07/2020 [facility] 80 mg 06/06/2020 12:00:00 AM EDT tablet,chewable 90 TAKE 1 TABLET BY MOUTH 2-3 TIMES A DAY AFTER MEALS (FOR BLOATING, TAKE NEEDED) TAKE 1 TABLET BY MOUTH 2-3 TIMES A DAY AFTER MEALS (FOR BLOATING, TAKE NEEDED) SOLD: 06/07/2020 [facility] Escitalopram 10 MG Oral Tablet ESCITALOPRAM OXALATE 05/02/2020 1 2:00:00 AM EDT tablet 30 TAKE ONE TABLET BY MOUTH EVERY D AY TAKE ONE TABLET BY MOUTH EVERY DAY SOLD: 05/02/2020 [facility] Alprazolam 0.5 MG Oral Tablet ALPRAZOLAM 05/02/2020 12:00:00 AM EDT ta blet 60 TAKE ONE TABLET BY MOUTH TWICE A DAY MAXIMUM DAILY DOSE = 2 TABLETS TAKE ONE TABLET BY MOUTH TWICE A DAY MAXIMUM DAILY DOSE = 2 TABLETS SOLD: 05/02/2020 [facility] 40 mg 05/02/2020 12:00:00 AM EDT tablet,delayed release (DR/EC) 60 TAKE ONE TABLET BY MOUTH TWICE A DAY TAKE ONE TABLET BY MOUTH TWICE A DAY SOLD: 05/02/2020 [facility] Alprazolam 0.5 MG Oral Tablet ALPRAZOLAM 03/23/2020 12:00:00 AM EDT ta blet 60 TAKE ONE TABLET BY MOUTH TWICE A DAY MAXIMUM DAILY DOSE = 2 TAKE ONE TABLET BY MOUTH TWICE A DAY MAXIMUM DAILY DOSE = 2 SOLD: 03/24/2020 [facility] Alprazolam 0.5 MG Oral Tablet ALPRAZOLAM 02/09/2020 12:00:00 AM EDT ta blet 60 TAKE ONE TABLET BY MOUTH TWICE A DAY, MAXIMUM DAILY DOSE = 2 TAKE ONE TABLET BY MOUTH TWICE A DAY, MAXIMUM DAILY DOSE = 2 SOLD: 02/10/2020 [facility] Alprazolam 0.5 MG Oral Tablet ALPRAZOLAM 01/10/2020 12:00:00 AM EDT ta blet 30 TAKE ONE TABLET BY MOUTH EVERY DAY, MAXIMUM DAILY DOSE = 1 TAKE ONE TABLET BY MOUTH EVERY DAY, MAXIMUM DAILY DOSE = 1 SOLD: 01/12/2020 [facility] 250 mg 10/05/2019 12:00:00 AM EST tablet 6 TAKE TWO TABLETS BY MOUTH AT ONCE ON THE FIRST DAY THEN TAKE ONE DAILY THEREAFTER TAKE TWO TABLETS BY MOUTH AT ONCE ON THE FIRST DAY THEN TAKE ONE DAILY THEREAFTER SOLD: 10/05/2019 [facility] Alprazolam 0.5 MG Oral Tablet ALPRAZOLAM 10/01/2019 12:00:00 AM EST ta blet 20 TAKE ONE TABLET BY MOUTH FOUR TIMES A DAY MAXIMUM DAILY DOSE = 4 TAKE ONE TABLET BY MOUTH FOUR TIMES A DAY MAXIMUM DAILY DOSE = 4 SOLD: 10/05/2019 [facility] 10 mg 09/30/2019 12:00:00 AM EST tablet 30 TAKE ONE TABLET BY MOUTH THREE TIMES A DAY TAKE ONE TABLET BY MOUTH THREE TIMES A DAY SOLD: 10/01/2019 [facility] 500 mg 09/30/2019 12:00:00 AM EST capsule 28 TAKE ONE CAPSULE BY MOUTH FOUR TIMES A DAY TAKE ONE CAPSULE BY MOUTH FOUR TIMES A DAY SOLD: 10/01/2019 [facility] ciclopirox 80 MG/ML Topical Solution Ciclopirox 09/06/2019 12:00:00 A M EST active [facility] ([facility] 8 % 09/06/2019 12:00:00 AM EST solution 6 APPLY TO AFFECTED AREA(S) ON NAILS DAILY APPLY TO AFFECTED AREA(S) ON NAILS DAILY SOLD: 09/21/2019 [facility] Insurance Providers Payer name Policy type / Coverage type Policy ID Covered green party ID Covered green party's relationship to quispe Policy Quispe Plan Information BCBS [place] [id number] SP [id number] [place] [id number] Self [id number] BCBS [place] [id number] SP [id number] EXCELL[place] BCBS B [id number] S [id number] [place] OF [place] B [id number] S YN [id number] [place] PPO 302/[id number] SP [id number] [place] [id number] SP [id number] [place] [id number] S [id number] [place] [id number] SP [id number] CHIDI [id number] SP [id number] [place] - Private Ins Commercial [id number] Self [id number] CHIDI [id number] SP [id number] ANSI-Not a Secondary Insurance [id number] CHIDI [id number] SP [id number] [place] - Private Ins Commercial [id number] Self [id number] Chidi Care [place] Medicaid [id number] Self [id number] SELF PAY ONLY [id number] SP [id number] CHIDI [id number] SP [id number] [place] Care [place] Medicaid [id number] Self [id number] CHIDI [id number] SP [id number] [place] [id number] S [id number] [place] Care [place] Medicaid [id number] Self [id number] [place] Care [place] Medicaid [id number] Self [id number] STATE INSURANCE FUND [id number] SP [id number] [facility] [id number] 2 [id number] [place] [id number] [place] [id number] OTHER WORKERS COMPENSATION [id number] SP [id number] Problems, Conditions, and Diagnoses Code Display Name Description Problem Type Effective Dates Data Source(s) 98306048 Plantar fascial fibromatosis Plantar fascial fibromato sis Problem 05/31/2020 12:00:00 AM EDT [facility] ([facility] [id number] Ingrowing nail Ingrowing nail Problem 04/03/2020 12:00:00 AM EDT - 05/31/2020 12:00:00 AM EDT [facility] ([facility] Cellulitis of left toe Cellulitis of left toe Problem 04/03/2020 12:00:00 AM EDT - 05/31/2020 12:00:00 AM EDT [facility] ([facility] Consult Consult Diagnosis 08/18/2020 11:28:33 AM [facility] Surgeries/Procedures Procedure Description Date Indications Data Source(s) INJECTION 1 TENDON SHEATH/LIGAMENT APONEUROSIS 020 12:00:00 AM EST [facility] Echocardiography Complete W/Out Spectral/Color Doppler 08/21/2020 12:00:00 AM EST [facility] ([facility]) Myocardial Perfusion Imaging Tomographic (Spect) Multiple St udies 08/18/2020 12:00:00 AM EST [facility] ([facility]) Cardiovascular Stress Test W/Interpretation & Report 08/18/2020 12:00:00 AM EST [facility] ([facility]) Duplex Scan Extracranial Arteries, Complete Bilateral Study 08/18/2020 12:00:00 AM EST [facility]) INJECTION 1 TENDON SHEATH/LIGAMENT APONEUROSIS 020 12:00:00 AM EST [facility] ([facility] Strapping Foot Or Ankle 06/26/2020 12:00:00 AM EDT [facility] Echocardiography, Tranthoracic Complete Image Documentation 04/14/2020 12:00:00 AM EDT [facility] ([facility]) AVULSION NAIL PLATE PARTIAL/COMPLETE SIMPLE 1 03/28/20 12:00:00 AM EDT [facility] ([facility] Results ID Date Data Source [id number] 10/28/2020 09:00:00 AM EST [facility] Name Value Range Interpretation Code Description Data Lorena rce(s) Supporting Document(s) SARS coronavirus [address] [facility] This lab was ordered by [facility] and reported by [facility]. ID Date Data Source [id number] 08/21/2020 08:04:00 AM EST [facility] ([facility]) Name Value Range Interpretation Code Description Data Lorena rce(s) Supporting Document(s) Echocardiogram Limited Laboratory test result [facility]) ID Date Data Source [id number] 08/18/2020 04:45:04 PM EST [facility] Name Value Range Interpretation Code Description Data Lorena rce(s) Supporting Document(s) Progress Notes [facility] GVCHTe6mNbCWVfAj73/QISodQZRpk4WiZSdxZEd5GGgcPZEzH6UjNUU8fY6uBYN4LWhEPhXbJsBlMPRx [facility] [file] dGE+DQogICAgICAgICAgICAgICAgICAgICAgICAgIC AgICAgICAgICAgICAgICAgICAgICAgICAgICAgICAgICAgICAgICAgICAgICAgICAgICAgICAgICAgIC AgICAgICAgICAgICAgDQogICAgICAgICAgICAgICAgICAgICAgICAgICAgICAgICAgICAgICAgICAgIC AgICAgICAgICAgICAgICAgICAgICAgICAgICAgICAg ICAgICAgICAgICAgICAgICAgICAgICAgDQogICAgICAgICAgICAgICAgICAgICAgICAgICAgICAgICAg ICAgICAgICAgICAgICAgICAgICAgICAgICAgICAgICAgICAgICAgICAgICAgICAgICAgICAgICAgICAg ICAgICAgDQogICAgICAgICAgICAgICAgICAgICAgIC AgICAgICAgICAgICAgICAgICAgICAgICAgICAgICAgICAgICAgICAgICAgICAgICAgICAgICAgICAgIC AgICAgICAgICAgICAgICAgDQogICAgICAgICAgICAgICAgICAgICAgICAgICAgICAgICAgICAgICAgIC AgICAgICAgICAgICAgICAgICAgICAgICAgICAgICAg ICAgICAgICAgICAgICAgICAgICAgICAgICAgDQogICAgICAgICAgICAgICAgICAgICAgICAgICAgICAg ICAgICAgICAgICAgICAgICAgICAgICAgICAgICAgICAgICAgICAgICAgICAgICAgICAgICAgICAgICAg ICAgICAgICAgDQogICAgICAgICAgICAgICAgICAgIC AgICAgICAgICAgICAgICAgICAgICAgICAgICAgICAgICAgICAgICAgICAgICAgICAgICAgICAgICAgIC AgICAgICAgICAgICAgICAgICAgDQogICAgICAgICAgICAgICAgICAgICAgICAgICAgICAgICAgICAgIC AgICAgICAgICAgICAgICAgICAgICAgICAgICAgICAg ICAgICAgICAgICAgICAgICAgICAgICAgICAgICAgDQogICAgICAgICAgICAgICAgICAgICAgICAgICAg ICAgICAgICAgICAgICAgICAgICAgICAgICAgICAgICAgICAgICAgICAgICAgICAgICAgICAgICAgICAg ICAgICAgICAgICAgDQogICAgICAgICAgICAgICAgIC AgICAgICAgICAgICAgICAgICAgICAgICAgICAgICAgICAgICAgICAgICAgICAgICAgICAgICAgICAgIC DlQARjBEMeQAIyVARfPDEmYYRlOJFyDSh2T4bqIFRrPMLoIQ4uDAz2Oc7+TLiLGcRtFYE1ppIybP0MJY 0nb3PdJMlnNMCfb2JrXIr6NH2CFLNiYBvgDH0YWSyc sf2PKVPbAFNycWHBk8vdVvBnZPD9DUBsDakqPN4FFELaM8tgkwKxBUXaRSZYYFasYTZLEGbcAKTVKU4S HvJcT7EzoE30ASJUAk8+YEyemwPoHuwAFfQ7UEPon3SwVKw3HL9LBEYsWnukd2KbUiQhSUNGDQfqBL2M QZL3NHFdHKAqIm9LVGPqH782kqOqIA2QQf6KLqLnWQ 3exm7YHxGmHYAqEcvRHlm9RHtuPH7GoZJaRUcFsw5mpmZpbsSVq2CroiJxmAINCXCiCSanJ4NrmlhzTL HkBGTdhTLrJO7UVRF2IJAiRlBvAsAaKbLjGII0ELKuRL7cOQwmUN7IRBR9DCwzBVEpJPGyK3zGOsPyMN ivAQKcpRhjBS1FFjKiJ6XosbBihEVcYSBcQIROBc4+ MUkcmsShIstSEdSkRNBsl0IjFBb2ZI5FRTWoYHnzHA6WHYRutB6jRKrbEL1TPoOvNzKrDPEQMmUfL42c cGPbNLf6P2LgQgPiVPZpHqrhRNMjFKolDoFaOYEtJaIwKXqvKH5+ID4+SSehRR3YZZrtkfIuTWXmHc3O THAbIBKcRI2lEKYhAWHiL6L9cHfhBGZYAfDzB5itlf mwMB2hAZFdX102hHswdkSzUYR0RNCeWv2FORTvUWK9AWIsvWKwOevzZNGGREtoVO6YdUGfPAP3pX9hJV ibMYZxUUKaW4oLMcOboHksVF35pDtrfoSqaCNqAGe+Aq6WXR5ow3SwTYz9ihNeUFndRGUxNAamTLKfKQ BnDIYpNKF9UXW3LFNZXyVvWMDxVEZwODkyCHPzIUTx pb2DCUGxMAOjEeMcGsAeHOMpFDUfERziSPRzEMT4CAZrLBJcCMJgBF5ZRaRwPUFrRHVeVNzgKBOhNDQo aw6GIXJtBHTlGyAkPlAgZSImASLkUTedXZCyORJyHaZbSFQkZQDbSU1OSqTmQUBgGCH6EDgjCYCiAUGd cr7VRWHbDVHlEzN4NbPiZEYiUPTbJLjuLLFmVXF1BZ B7QXCoDBYzRJ3ZRnWpHQXuCPg5SjmcJRDqVLKubz2XDTRgTVTwJHB2EBQdGQTtIKDjTOolQXCbIIU4DZ jtMRYaFIPpRQ1VUyBnHBVrWLEzNiufXRMdUFOehs4NHUYyAVAtKSEeRPQuHBZxVMDlOPoaFVUgTGQxCf U2VAGlAMOrOV2DLkIvXFUbTFW5XUkwKIWvXJBqrg4M OFDuFXOqIqz4CnBkGTMoWVGrOIjnVVFpXPH4APwdXVBiBVCiUP2FMzDrTMQhDzTjHZNyGVBrGFEaau4Z RSNtVSKsARLzNzQyDQXePIUkDEljZFUdBGJ5Kia0QQWvIYYcJW2TTkZkJWDeAoO7SpSzSCFyAPOuqy5X CGHbQHUiHKhoRhJqCCGvAMHgWEujUKKyOGI2VGqeSV SnZCNpGA8YHlGcRKQbWwA5WmVuFZGnSCYaxd4ECGJiRSBkOrYqRbCcUBYrEEXgUHkqMUUjPWP3XtetPT CtAWVlTK4KVsZoXMOqUfu2GtYeZTBjACBczo7UMQBiGDHjXWN3SeAlXWPpPSAyIUuwFEGnSAG3AkZ2MG LiJQZyZI0MWfWvKGVcDkk2IEDyQBGyOKVgbh6ZcJXj aLmntf5PXWnGGs1HcTtxQJHcUVicVx6qbDJaMKCeUGPQCp9CdzIdDQYiDLRWUWfrVHQsRXSpSIS8POL1 BNMjGHvpEhYiXRP8Y7XnJtL9CnI7WDHcEqV0HJV4UDQ6RFvoBAVhS2KyWYO7UxyjXBWqDXY4CJWqKyX+ WY8cWMq+Vv0Me1OczlC2fcEvBFsvDAL6YI1IHOPGF7EIYj== ID Date Data Source [id number] 08/18/2020 10:37:00 AM EST [facility]) Name Value Range Interpretation Code Description Data Lorena rce(s) Supporting Document(s) Nuclear Exercise/Myoview Laboratory test result [facility]) ID Date Data Source [id number] 08/18/2020 09:14:00 AM EST [facility]) Name Value Range Interpretation Code Description Data Lorena rce(s) Supporting Document(s) Carotid Bilateral Laboratory test result [facility]) ID Date Data Source [id number] 07/25/2020 01:09:20 PM EDT [facility] Name Value Range Interpretation Code Description Data Lorena rce(s) Supporting Document(s) Telephone Encounter [facility] YUQZTw5cXvKCQeYj23/IHKwkZMPxz2PrBEzlWWl9URndQHXoP5VuPUQ4uL2cVGZ2KMaBFcTiTyImPKGq lbm [file] AgICAgICAgICAgICAgICAgICAgICAgICAgICAgICAgICAgICAgICAgICAgICAgICAgICAgICAgICAgIC XrBTBkEPHoPLCaYXTmKFWgQMQgWFAuZZVnFIXpPP3UQXRjEXErCFMrWAIeYFXxGPKrHXSmCVBhYANtUF AgICAgICAgICAgICAgICAgICAgICAgICAgICAgICAg UAJoPFEbLWXwHRFrZTNwIIYkISHyOFBuPPYcPTRuPABhEEOsJTAqEC7QZLQvLXXzLSRzYUFvDNLfIJSb ICAgICAgICAgICAgICAgICAgICAgICAgICAgICAgICAgICAgICAgICAgICAgICAgICAgICAgICAgICAg SQZzKXXmAZIwXSOjKODnLYShGYVwKJ3XZRRyJPQqOA AgICAgICAgICAgICAgICAgICAgICAgICAgICAgICAgICAgICAgICAgICAgICAgICAgICAgICAgICAgIC HdVRWpXMIeCYEqIDVrDBTlASZhEFGsPSIcZLLeOODzAV6UYJDiGQHjVJWpSGPbEGRoUCZpHDEeVTQaYC AgICAgICAgICAgICAgICAgICAgICAgICAgICAgICAg HLFmSNTfUOSfABPpJRXwCVVuLKBnUPIxDAHcOGEaUVPyHSXnQICrOLPrWH5ZVOTnWWZpKRJmNSYzBZQw ICAgICAgICAgICAgICAgICAgICAgICAgICAgICAgICAgICAgICAgICAgICAgICAgICAgICAgICAgICAg TLCbCANxCQReOBQkUDOuZVDzBWVdYUQzBR0SKNGgWW AgICAgICAgICAgICAgICAgICAgICAgICAgICAgICAgICAgICAgICAgICAgICAgICAgICAgICAgICAgIC DbXGAuBYSfAFZeTPOtQNTuHXFzZIUzVYZbSKYoAVLmJEVtXT6ZRZFfIFOvRHAiMMIuWCTtEYPhYYOvEJ AgICAgICAgICAgICAgICAgICAgICAgICAgICAgICAg YPVuCLGlXYSoQCRfNTZuNJEwQOXzDTRmSJDvXEFnTYCxRIGlOLOzNZPvTJXkML8CTTEdRARsOADvBCGd ICAgICAgICAgICAgICAgICAgICAgICAgICAgICAgICAgICAgICAgICAgICAgICAgICAgICAgICAgICAg UKAdRMHsOYGuYLVpARPnIAFgCBMlNQCqAUWoTI6XYD AgICAgICAgICAgICAgICAgICAgICAgICAgICAgICAgICAgICAgICAgICAgICAgICAgICAgICAgICAgIC VoCWNqDTKmAKGsVRWwRVHjLLYaUSEvTOCwENPpIGMfDLWhXPWzMM1YOQ06zZLax7A5GEIrHX8jzhk/Pg 1FOGxlljCkrJUaOB3LHeMwMT9nqf8XCgHjLG9tyk2F UPmSEiEgQ4Z3sEFaLWGgBXKIKjAvM61eJOjdHh92NTorHLPjSoBnGRx2Jr2ZDsGqV8hlBUHoWjN7FWVh MnAzNXokPH4Aj6JjrVXtXMj+Ch0UDA2ga1JjZJhiVfPbJM9yvx8BHJcHZfWcJ9VljhN7HOAbDIOeJr4X OARsIDMubURiOaRzTHHWVcViH5JfhZ32ZTDPVp7+DQ wrwlTdGgeSHzEoUHIpg4FfVHt7NL7UFYFcEIt3rWNhFDKeGJNko07gGPTjM055hlShdjMjiKCFoisoeJ euZWEssLFyURCRMqXozAUoCT3oNY9iOPXaWTQeUoH6HMPQTU5NXGDcTSCdcSZyZPWoSKXNIK6JBKhyEV Y6FyijwcWtkFLxITfoON8YONQfbzErEiBeDJGDQIk+ Yr2MPS4ji1OcEXphJTPbFR1fle2MRQcSVqGxU7A4gREhO6W5XLroRf7EZRWzWCAgXqMnGMGGOUntEE9P YO1yyuJ7KH5PpTNjSOLvFDIyyDMhAFf1S74qeYLtQSwyNW7GWAY+Carolyn+Zh2ZKVRaZLXaENCkYmKuFKDB XaQcN9JnG7YGb0RfF5GsVI06tMwpqnYmMEelVM0OTI 8kDKGvFVCLTP3YdSEcuO6rqjVpKnNoQYLXKtDwR00izPHpWOGhFWOyUUKyYa6UYZGrB7MltzWhgOzhzn HhAUZpOYYBQM1AOZsldzZdeUFozGokAR92aIddAF5KOo3FQjUwVQ6kgd6XdVXqNq4COPYaCV0LSKFhPW GmEKLhLIO5KGHjQaEbIGiqTYNaDFQySMO7PKFdOMJn HJ8EAuZdAGVvIMf3QRbuUDMrPROeuv9OUUJoNMWcHVP6BjBcWGIhFDXnATvlJGHgSMGdGEN9WBFyVOHi ML2MZhHfVMPcUVXkOIFvWKHaMAFohi6GJNPkCPKbRJB8GDEbNNObDAFdYKasKJRvTIFxTwZqGIVpXCDo ON1AJqItYNTdHHU7VQChRPQyAYOjjs7GITOrPMUsPi FoHVOuCRTjXEDqIHbdJHQxQKBaDIe4HYOiBIAzWC5TJfVbQWByAMK3ORUcFWOfKAIkky6CHFJgZHJhNh u5TpXsPEJfSFTnUFmtMTRkENA5UiZ8UVQnUWMjDL0GJaUkYSNyRLO8UYGcDVWxFRFuip5ACPLwCRKyCu y9WUKjTLTsRLCcVDdyNPSoCYL6IPghKQImXCQfNQ8A TeJcHVQqCXgtHjNiJIBxMAHogs8CNHToXATpZMD2NPLdERTkGGWqBPajZGHeEME4FsEuZHKgTHIwKF6J MeKdHTJrPWr1ZuVtBYRdOILbnr8HIOIcOUAfVMd6RrCfEPPjRGSlGVayUYOlZKSyUffgTWGdGBIxYS6Q XyLoSPTfJtF0ObAmUJYnMPFfbu4SRAZnOAOfNAHiFB WqPGDfFWThFUo3jbCgsBTdDNy0FT4ZB8NkqvWoXsSFVg0Ol192MIW8JKDsDw1FQ7xiWw6rRYHeMGUXMk 3IVYl7YdAuL5SpQrNjMBfvCwwtJzBtKKW3FDGhKEImHeTmOiU+NBlxESWpI8DqCZFbT3UwSHIgSlSgCc v9RjTmKMTlZTNcXQ1xIVJHRc8+QIzziWXswAofLJCDCyKbMFO4PLyaOALPKl9F ID Date Data Source [id number] 07/25/2020 01:07:04 PM EDT [facility] Name Value Range Interpretation Code Description Data Lorena rce(s) Supporting Document(s) Telephone Encounter [facility] UWRPXj8vXbHKIiKj93/QDGjcYHVac1HePLfpABf1KCqyWBAlG7GnNQC0kK5iGMS6IVtMCrFpEfQhINXd lbm [file] ICAgICAgICAgICAgICAgICAgICAgICAgICAgICAgICAgICAgICAgICAgICAgICAgICAgICAgICAgICAg ICAgICAgICAgICAgICAgICAgICAgICAgICAgICAgICAgICANCiAgICAgICAgICAgICAgICAgICAgICAg ICAgICAgICAgICAgICAgICAgICAgICAgICAgICAgIC AgICAgICAgICAgICAgICAgICAgICAgICAgICAgICAgICAgICAgICAgICAgICANCiAgICAgICAgICAgIC AgICAgICAgICAgICAgICAgICAgICAgICAgICAgICAgICAgICAgICAgICAgICAgICAgICAgICAgICAgIC AgICAgICAgICAgICAgICAgICAgICAgICAgICANCiAg ICAgICAgICAgICAgICAgICAgICAgICAgICAgICAgICAgICAgICAgICAgICAgICAgICAgICAgICAgICAg ICAgICAgICAgICAgICAgICAgICAgICAgICAgICAgICAgICAgICANCiAgICAgICAgICAgICAgICAgICAg ICAgICAgICAgICAgICAgICAgICAgICAgICAgICAgIC AgICAgICAgICAgICAgICAgICAgICAgICAgICAgICAgICAgICAgICAgICAgICAgICANCiAgICAgICAgIC AgICAgICAgICAgICAgICAgICAgICAgICAgICAgICAgICAgICAgICAgICAgICAgICAgICAgICAgICAgIC AgICAgICAgICAgICAgICAgICAgICAgICAgICAgICAN CiAgICAgICAgICAgICAgICAgICAgICAgICAgICAgICAgICAgICAgICAgICAgICAgICAgICAgICAgICAg ICAgICAgICAgICAgICAgICAgICAgICAgICAgICAgICAgICAgICAgICANCiAgICAgICAgICAgICAgICAg ICAgICAgICAgICAgICAgICAgICAgICAgICAgICAgIC AgICAgICAgICAgICAgICAgICAgICAgICAgICAgICAgICAgICAgICAgICAgICAgICAgICANCiAgICAgIC AgICAgICAgICAgICAgICAgICAgICAgICAgICAgICAgICAgICAgICAgICAgICAgICAgICAgICAgICAgIC AgICAgICAgICAgICAgICAgICAgICAgICAgICAgICAg ICANCiAgICAgICAgICAgICAgICAgICAgICAgICAgICAgICAgICAgICAgICAgICAgICAgICAgICAgICAg ICAgICAgICAgICAgICAgICAgICAgICAgICAgICAgICAgICAgICAgICAgICANCjw/gUFdA3pckGFnupS5 O6foWt5RVm3RUP3ff4XpRZGxRGltymLvZuzJFoXjFP XuVnwZEne3CHmqZP7TfHKtT1GbB5AgLAikFF1LWQBvUUWweZRpGFWpHNYxAnJ2UKNlFVobFE3LuJWkQN ckEAZwVKFhCE4PQHLgF062tvOsQQ4MIy3BHkXjBR8bgj5XGwMkZORtCkyHDhr2OVnhBJ2FiSDfuNTwNe UuZEXLNpHpA3mgm5XlRbKqJXGIOLhkMG6Wq7FbtLDj DQo+Ci2MWY4zb7DeUTvhHrDfMD3tmw8HRBeNEcWvP4YfnCmvCRVnaZEojA4bVWEJgxCsdE47WWEbKutm S8Het5XjkbNYsKd5pAyhYg3dXSBgRIWyVqKvDaOtTMEtRAujGEZNCGpXGqSdE1Jik2OrZfX6NGUfErDx GMhyGMQcFvH4WC22kJrbWE7YKRCoVRCkIO69HTBwNS OyYw1LQv5CFyOiNW7dtd1DCbDsLESgBgzMNvq1MGuwFV1IkRLhG5DczWSdf1sBRbBmM0AJSHVtOKHsMy 5LZSLyVdGwWVNtNIrwZE5xYCHgDBQBnZiqacB5DA2GBO3yioLvLL9WScZmQn6kOd4MHtFyR0AtB5LvXO BpGKICXZxfBO2SUZjvEN2bZI0An8STeONkqG6iih3H AMJaJIRmZvnnmh4RHalxX7S4bSxcVPTfNtIkTDNSJYkmFJ7RJUErLJG8ALGrPISqJMKFWmCbC05wBT3T H2Gcc86nJwE1EGEuEtSgCJmiYY01xScqouHfjWBozFraAM3YYz4+DQplbmRvYmoNCnhyZWYNCjAgMjUN HtOpOQZzBOJxMLHxEjI8VnJrDc4LSJFzHZAbUUAoHp MqWMPnDSFlOGkrTEDiPNS9BwM9NSTrMNPtWC0THnUsMVYuVyJ3WCuxBVLjTNTxay6TJPXgQTNnEYK9Yj GoQTOwWWDzSQlmBIAkTFOwFnB9TRYyTTDtQZ4YEgRxSILwARE9TFPlXANkBSTbhq2TVGRjZQHeTtAxAN JaKDGkRBUkXDehMCCbVKTyVtEpHYJaHBNoBL8CGiAh HLEpMVS5BMAmTEKsQINbea5VHPAtQRSmHge8UWVhPDXdCLNbOXxeNYKeZUOzLRWiOFUrTSInPU3PJkIx WTIpFKRaKkIuAVTdLUPtyl2DFWXuVWBnHdO9IsKnDVCvNJEfHTkwPPFbBTH1Nes9ULUnBJBvVT6SEuVv WDSmJAdlKSceKJSbEWBzvu0LCDZmCOSrXoK8IgBlLA FuJZIhDWvsRNEhGQM9XcubWCIyPVJlEB3WAsYdIFBaNTknIoCySAYzKJPlhp1EKMTmHBLnOFFeSXYzLC VzLVBuAHfbRUDxTLO1SntsPCZnVDOaPV2TZbPnTDGuRJgbBHihPINgGAVxge0YQYYlBRLbMSW5OiXsCF CbXHIcIYbrPDRwLGBnBbF1DVGlLNHsEN3EAqPjCGAt WdL1VzWaPKGuYEZksn4PtFWexNcxhv4HXBxZFi1TgTfvZCL8RGhjSn7byOPgQJJhFREZYv1FiqCuTTDl HMWQHGiqHWTxJXXpBYN6ETY1SBC1DoLvYZZyIXWhDcC5TCYlCbFoYFAkTeP4CbXoBdEvFRkbCTO5YKPu XUH2NvLaEQKkDlZ5THIvNxI+YV4nCPg+Zz6Xj0QeqpG0utBdSAgbKOFkOk2IQEEWN3JIUj== ID Date Data Source [id number] 07/25/2020 12:58:31 PM EDT [facility] Name Value Range Interpretation Code Description Data Lorena rce(s) Supporting Document(s) Telephone Encounter [facility] CKQXVf0jCmJMJyMp65/GTGehTCBtg6MbTNfpIZg8IOrrLRFyP3QpPIP3xJ3nZGS5JFwLJlGxObRySQLs lbm [file] AgICAgICAgICAgICAgICAgICAgICAgICAgICAgICAgICAgICAgICAgICAgICAgICAgICAgICAgICAgIC JdGGNzARZlGIPbFXQrMBKoVBRzRZ4ESUYiTKGnOQVxVYYdXYVvLIWcMWJsCTKmKAUxCIQlKDXkAHYcNY AgICAgICAgICAgICAgICAgICAgICAgICAgICAgICAg ERLpUTYgNOBvYCXsCXHvYWBrLMGoXCTcVSKcQXRtNK3LZBExQEBhAGXnIEOiLYOsKDUhYCWxITBbVLTc ICAgICAgICAgICAgICAgICAgICAgICAgICAgICAgICAgICAgICAgICAgICAgICAgICAgICAgICAgICAg XLGaQPEsEQHaIJUiKQ4UBITpBKWwBBWsMNPcHTKpHY AgICAgICAgICAgICAgICAgICAgICAgICAgICAgICAgICAgICAgICAgICAgICAgICAgICAgICAgICAgIC CvPNFyIZMzOMEdRQMhNLWwEAWsQWWeXP2QOJMlSQWjMHThKISiLNHiAABnXIZuXMAbSFVjWIAxZUYwKF AgICAgICAgICAgICAgICAgICAgICAgICAgICAgICAg POBoQWJiWELeFRAvUUFuIPNaRBQaDNLvXTTyEMLuEGSpXS5XFTJgZIItEHUtTMGrWDFcCRLgLRSnDMZf ICAgICAgICAgICAgICAgICAgICAgICAgICAgICAgICAgICAgICAgICAgICAgICAgICAgICAgICAgICAg TYDdUTVcUCKcVGBwWDSxXC0NFXJaSGIeKUSrCQZdFX AgICAgICAgICAgICAgICAgICAgICAgICAgICAgICAgICAgICAgICAgICAgICAgICAgICAgICAgICAgIC ZaTWDeMNDsEIPtOZQdPHIsANWrVIXtNVOyEI7HSDBcITGxTTKcQVFzMSDpKSIqLDZmUCBqQCCaOIYxCX AgICAgICAgICAgICAgICAgICAgICAgICAgICAgICAg FWBtGIAeZSQgITCfKCRzLRWaFYUjPCMuWZLjDEAjFNDwCGQnST9VSXKaQGEmLOIoFNVbNVBgUFFvMYLr ICAgICAgICAgICAgICAgICAgICAgICAgICAgICAgICAgICAgICAgICAgICAgICAgICAgICAgICAgICAg GECjSPRxBSUgGPKiOXZdUECyNT9AZTWyOJCwDFLhYM AgICAgICAgICAgICAgICAgICAgICAgICAgICAgICAgICAgICAgICAgICAgICAgICAgICAgICAgICAgIC MoQWBaICIoITYfOANqBPJlPILtSKMdYTBfOYRdDS2CDW65uOXuu3B4EPCtLA0dkjo/Ps5CAKshmeGrfW ElGQ6QKpOmPB2yty7MZzEuNR3mka6PPPbSEwRzY5D5 jAUzBLSvALYVPrIlY77iBBrxHe26SMhhPAXePwFvFOi2Ao5TAdUvG8ksDOXxPuA8TRNvHzNcXNxgVA1W l4IwsGYqLSw+Zv6CEF3ww5SuFOntVzOlHO4mxt2GXMkUTlJlB5NnnbF2JVDmNUOxFu1KLIInUKJytSTc ExWwLIARFoCcY0CsxY24JVBLFt2+DQplbmRvYmoNCj HjJSJqq0DqJIl4QA1UZXNnXQk5eGOnPBDuQWDxo71yIYUwX509byPzntQeaGIEvbvjwKdoTXXinIIaTS BFYbPrwHPeWR3jEW9qQOTrGXVxMfE1HYKHHT9RYWEmMHRngJRtSAZlKZIEYB2MWHvbPUV0BckarbVjwJ XgUMeuYD4DVRBsrxXfQeBwNBTBBTg+Ug2OCI3er4Ns TQxfKDCoBZ4flm4NARlIWiJhG5V0jRMvW2I9FYggCa6ZKBYhNTQlNcIuNXRXTJmsOZ0MKI4vzqK7EY4P rGJtQBGvQHPljBXuUQp5J26scAXjRQbsOX8FMCM+Carolyn+Wx7MCXAzSPRnFLHqMuPmYRFFYvWpJ5AtG6ZJ a0EnL0WxAO17yRmyadKrHTwlTF9IEU8jULWjGJESCC 2PkGPmtH4sjdInSrCcDITPAwLjU94bbHOvDEOeJQOpVFRqJu4LUPLuL3VybdZygYxqruOkTOYuFUUTHT 4FFQylwsSaeVFtiLfnFH94kLadBQ0IQn8VSbVnGR6flv0DpAJfBd7RYYYjRM8CZUCqDQMkRGJkNQF6MU KzJhIwNGsdQMQbSZOuDJK1MWSgBAIbJY0SFrRuIRKi XIv2XGNlHWOhLUNugu0XHFAyODKsIYX0YgRoARWkTVMkLGqyCABuTWWfOMX8FXDqZJBqUH6EDcCgNBEa LTFdLRJxXCZnPAEope4HSTHjPXYfMEF9PMFnCURcYITbVOecWGNxBWHmKWM2VVRkBELcVB4PYbCnQXZq ZXH4PBnxQQHlAKIcux1NFYDmNWMyOtdxEgRyRTJsLF MpNRfrRFJmLGDtMHmvJKVaAOBaCC2IFpJvGHZlXQBbVZxfALPiGHMlyg1SOPZaWWHsUDW1BFZjTYYeQK MyWExcBXClXXQ4BxV6OKIeASTjUJ5GDiWlEDPzVJE3JnAoPDQdXGWgzl7JUTLjBYKxSwF3XKWfLUYwKH RwSQwgYRMsTYM7Rsq6CNHvQEGtML3HMwBoFSLtAPs8 KwLtJQGoODGtoj8HZTNnFLSzYGB1MbDkDTSxWLIvWZsxDOZcLKO8QhK3VKExZCWiNG4IGuJbNZUpKIm9 KpIhORTvAWJzrd7QSWPhYHTaLEC1RbEeKJSnLTAnCKuzUQXaGFZqBgy4NZYgPHKnLB7FTfHvGMRpUcX4 RKZkAIOsKGShko9LKRGsAXKaPAnsQGNcJQUoYQWbBF p0lcCqaZQcMXs0RY0QN1NxxuJnCxALRv9Bk020DYO7CJPjSd4XN2qdBn5uDRRfMHWXFs3LHIq3SAZqST RfBUZfFdg9DBtjW6AkC0H5JVTgEZRiIrtbPlO+PBw1YeTsRKV2OBJ1PxaqGwXdXPNoWVB5LFWiUlF1NO X7CV8zXZSQJv9+OThvkXCjuYkeGFVCRlCyBGCuGDxeQUJAIl6H ID Date Data Source [id number] 07/25/2020 12:42:35 PM EDT [facility] Name Value Range Interpretation Code Description Data Lorena rce(s) Supporting Document(s) Telephone Encounter [facility] AUJJKc5nNePKQyIh26/AWAwtJQZul9UdPZraANh9GZgrMNXwE5QkSRP3nM0nJYU5EXnFHfFgHuCuFEMd lbm [file] [id number]= ID Date Data Source [id number] 06/27/2020 12:00:00 AM EDT [facility] Imaging Eliecer Fairbanks Patient Name: TOM NARAYAN [id number] [facility] Date of : 1985Nitza[birth year] [place] [id number]- Date of Exam: 06/27/2020#: Fax: [phone] EXAM: CT ANGIOGRAPHY, CHESTCLINICAL INFORMATION: Followup abdominal aortic aneurysm.Comparison 01/06/2019 which showed the maximal dimension of the aortic rootto measure 4.6 cm.Low dose 64 slice contrast enhanced helical CT examination of the chest wasobtained using the pulmonary angio protocol with 1.5 mm thick incrementsalong with standard 3 mm thick increments through the whole chest.Sagittal, coronal, and bilateral arterial oblique reconstructions wereobtained with post processing at the physicians workstation when necessary. Contrast utilized 100 cc of Optiray 350.The maximal dimension of the aortic root today measures 4.7 cm. Nomediastinal or hilar adenopathy or mass has developed. There are nopleural or pericardial effusions. The imaged upper abdomen and imagedosseous structures are unchanged.Evaluation of the lung koehler shows no changes from the prior exam. 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 It should bestated that there is some cardiac activity motion artifact which doesobscure the anterior wall of the aortic root.Accredited by the [employer] in [place].Gwendolyn Mcmillan, ERVIN/Bijan mejia for referring TOM NARAYAN to our office. Electronically Signed - GWENDOLYN MCMILLAN DO 06/28/20 8:57 Name Value Range Interpretation Code Description Data Lorena rce(s) Supporting Document(s) ID Date Data Source [id number] 04/14/2020 10:06:00 AM EDT [facility] ([facility]) Name Value Range Interpretation Code Description Data Lorena rce(s) Supporting Document(s) Echocardiogram Laboratory test result [facility] ([facility]) Procedure Social History Code Duration Value Status Description Data Source(s ) Smoking 10/18/2020 12:00:00 AM EST Patient has never smoked co mpleted Patient has never smoked [facility] ([facility]) Vital Signs ID Date Data Source UNK Name Value Range Interpretation Code Description Data Source(s) Respiratory rate 16 /min 16 /min [facility] ( [facility]) Body mass index (BMI) [Ratio] 35.5 kg/m2 35.5 k g/m2 [facility] ([facility]) Body weight 262.00 [lb_av] 262.00 [lb_av] [facility] T ([facility]) Body height 72 [in_i] 72 [in_i] [facility]) 6'0" Heart rate 72 /min 72 /min [facility]) Diastolic blood pressure 78 mm[Hg] 78 mm[Hg] [facility] ([facility]) Systolic blood pressure 116 mm[Hg] 116 mm[Hg] M [facility] ([facility]) Body surface area Derived from formula 2.42 m2 2.42 m2 [facility] ([facility], ) Body weight 119.297 kg 119.297 kg [facility] ([facility] [place] body weight 184 [lb_av] 184 [lb_av] [facility] T ([facility]) Body mass index (BMI) [Ratio] 34.7 kg/m2 34.7 k g/m2 [facility] Body weight 263.00 [lb_av] 263.00 [lb_av] [facility] T ([facility], ) Body height 73 [in_i] 73 [in_i] [facility] ([facility]) 6'1" Diastolic blood pressure 74 mm[Hg] 74 mm[Hg] [facility] ([facility]) Systolic blood pressure 126 mm[Hg] 126 mm[Hg] [facility] ([facility]) Body mass index (BMI) [Ratio] 36.2 kg/m2 36.2 k g/m2 [facility] ([facility]) Body weight 267.00 [lb_av] 267.00 [lb_av] [facility] ([facility]) Body height 72 [in_i] 72 [in_i] [facility] 6'0" Heart rate 78 /min 78 /min [facility] Diastolic blood pressure 64 mm[Hg] 64 mm[Hg] [facility] ([facility]) Systolic blood pressure 110 mm[Hg] 110 mm[Hg] [facility] ([facility]) Body surface area Derived from formula 2.44 m2 2.44 m2 [facility] ([facility]) Body weight 121.565 kg 121.565 kg [facility] ([facility]) [place] body weight 184 [lb_av] 184 [lb_av] [facility] ([facility]) Body mass index (BMI) [Ratio] 35.4 kg/m2 35.4 k g/m2 [facility] ([facility]) Body weight 268.00 [lb_av] 268.00 [lb_av] [facility] ([facility]) Body height 73 [in_i] 73 [in_i] [facility] ([facility]) 6'1" Diastolic blood pressure 72 mm[Hg] 72 mm[Hg] [facility] ([facility]) Systolic blood pressure 128 mm[Hg] 128 mm[Hg] [facility] ([facility])
[2020-11-02] MEDS ORDERED: fentaNYL 100 MCG/2 ML INJECTION (J3010) As Ordered ONE (13:04)
[2020-11-02] MEDS ORDERED: propofoL 200 MG/20 ML VIAL As Ordered ONE (13:04)
[2020-11-02] MEDS ORDERED: LIDOCAINE 2% 100MG/5ML SDV (FOR ANES.) As Ordered ONE (13:04)
--- NOTE | 2020-11-02 14:00 | ROOR ---
Patient Name: Kennedy Moreno Procedure Date: 11/02/2020 1:26 PM Date of : 1985 Age: 35 Room: [facility] Gender: Male Note Status: Finalized Procedure: Upper GI endoscopy Indications: Dysphagia, Heartburn, Follow-up of eosinophilic esophagitis Providers: Vik Juan MD Referring MD: CARYN CONNOR MD Requesting Provider: Medicines: Monitored Anesthesia Care Complications: No immediate complications. Procedure: Pre-Anesthesia Assessment: - Prior to the procedure, a History and Physical was performed, and patient medications and allergies were reviewed. The patient is competent. The risks and benefits of the procedure and the sedation options and risks were discussed with the patient. All questions were answered and informed consent was obtained. Patient identification and proposed procedure were verified by the physician, the nurse and the anesthesiologist in the procedure room. Mental Status Examination: alert and oriented. Airway Examination: normal oropharyngeal airway and neck mobility. Respiratory Examination: clear to auscultation. CV Examination: normal. Prophylactic Antibiotics: The patient does not require prophylactic antibiotics. Prior Anticoagulants: The patient has taken no previous anticoagulant or antiplatelet agents. ASA Grade Assessment: II - A patient with mild systemic disease. After reviewing the risks and benefits, the patient was deemed in satisfactory condition to undergo the procedure. The anesthesia plan was to use monitored anesthesia care (MAC). Immediately prior to administration of medications, the patient was re-assessed for adequacy to receive sedatives. The heart rate, respiratory rate, oxygen saturations, blood pressure, adequacy of pulmonary ventilation, and response to care were monitored throughout the procedure. The physical status of the patient was re-assessed after the procedure. The Endoscope was introduced through the mouth, and advanced to the second part of duodenum. The upper GI endoscopy was accomplished without difficulty. The patient tolerated the procedure well. Findings: Mucosal changes including longitudinal furrows, white plaques and crepe paper esophagus were found in the middle third of the esophagus and in the lower third of the esophagus. Biopsies were obtained from the proximal and distal esophagus with cold forceps for histology of suspected eosinophilic esophagitis. Verification of patient identification for the specimen was done by the physician and nurse using the patient's name, date and medical record number. Estimated blood loss was minimal. The Z-line was regular and was found at the gastroesophageal junction. No gross lesions were noted in the entire examined stomach. The duodenal bulb and second portion of the duodenum were normal. Impression: - Esophageal mucosal changes suggestive of eosinophilic esophagitis. Biopsied. - Z-line regular, at the gastroesophageal junction. - No gross lesions in the stomach. - Normal duodenal bulb and second portion of the duodenum. Recommendation: - Patient has a contact number available for emergencies. The signs and symptoms of potential delayed complications were discussed with the patient. Return to normal activities tomorrow. Written discharge instructions were provided to the patient. - High fiber diet. - Avoid the food allergens. Follow Six Food Elimination Diet ( Avoid -- milk, soy, eggs, wheat, peanuts/tree nuts, and seafood), until allergy testing is done. - Continue present medications. - Await pathology results. - Telephone GI clinic for pathology results in 2 weeks. - Return to GI clinic in 3 months. - Return to primary care physician. Procedure Code(s): --- Professional --- 34609, Esophagogastroduodenoscopy, flexible, transoral; with biopsy, single or multiple Diagnosis Code(s): --- Professional --- K22.8, Other specified diseases of esophagus R13.10, Dysphagia, unspecified R12, Heartburn K20.0, Eosinophilic esophagitis CPT copyright 2019 [employer]. All rights reserved. The codes documented in this report are preliminary and upon mold yard worker review may be revised to meet current compliance requirements. Vik Juan MD Vik Juan MD 11/02/2020 1:59:57 PM Electronically signed by Vik Juan MD Number of Addenda: 0 Note Initiated On: 11/02/2020 1:26 PM Estimated Blood Loss: Estimated blood loss was minimal.
[2020-11-02 14:16] VITALS: BP 131/80
== END 2020-11-02 14:30 | disposition home or self-care (01) ==
LOC: M OPP 11:02
PROVIDERS: ATTEND Internal Medicine Gastroenterology
DX: R13.10 Dysphagia, unspecified (principal); R12 Heartburn; K20.0 Eosinophilic esophagitis; K22.8 Other specified diseases of esophagus; L40.9 Psoriasis, unspecified; F41.9 Anxiety disorder, unspecified; Z88.1 Allergy status to other antibiotic agents; Z79.899 Other long term (current) drug therapy; Z95.4 Presence of other heart-valve replacement
CPT/HCPCS: 43239; 88305; J3010

== ENCOUNTER → 2020-12-22 | Outpatient (CLI) | payer BC ==
[~2020-12-22] MED LIST changes: -NS 1,000 ML IV ONE
[2020-12-22 07:43] LABS: HEMATOCRIT 46.6 % (42.0-52.0); HEMOGLOBIN 15.8 g/dl (13.5-17.5); MEAN CORPUSCULAR HGB CONC 33.9 g/dl (32.0-36.5); MEAN CORPUSCULAR VOLUME 91.4 fl (80.0-96.0); PLATELET COUNT, AUTOMATED 291 10^3/uL (150-450); WHITE BLOOD COUNT 5.6 10^3/uL (4.0-10.0)
[2020-12-22 08:06] LABS: HEMOGLOBIN A1c 5.5 %
[2020-12-22 08:27] LABS: ALBUMIN 4.3 GM/DL (3.2-5.2); ALT/SGPT 50 U/L (12-78); BILIRUBIN,TOTAL 0.6 MG/DL (0.2-1.0); BLOOD UREA NITROGEN 14 MG/DL (7-18); CALCIUM LEVEL 9.4 MG/DL (8.5-10.1); CARBON DIOXIDE LEVEL 30 MEQ/L (21-32); CHLORIDE LEVEL 107 MEQ/L (98-107); CHOLESTEROL LEVEL 192 MG/DL (<200); CHOLESTEROL RISK RATIO 4.363 (<5); GLOMERULAR FILTRATION RATE > 60.0 (>60); GLUCOSE, FASTING 96 MG/DL (70-100); HDL CHOLESTEROL 44 MG/DL (>40); LDL CHOLESTEROL 133 MG/DL (<100); NON-HDL-C 148 MG/DL; POTASSIUM SERUM 4.2 MEQ/L (3.5-5.1); SODIUM LEVEL 142 MEQ/L (136-145); TOTAL PROTEIN 7.5 GM/DL (6.4-8.2); TRIGLYCERIDES LEVEL 73 MG/DL (<150)
[2020-12-22 09:39] LABS: TOTAL 25(OH) VITAMIN D 36.1 NG/ML (30.0-100.0)
== END ==
LOC: M LAB 06:52
PROVIDERS: ATTEND Family Medicine
DX: D64.9 Anemia, unspecified (principal)

== ENCOUNTER → 2021-01-10 | Outpatient (CLI) | payer BC ==
--- NOTE | 2021-01-11 07:32 | REP ---
INDICATION: LEFT HYDROCELE COMPARISON: None. TECHNIQUE: Gonzalez scale and color Doppler evaluation using linear and curved array transducer with color Doppler evaluation. FINDINGS: The bilateral testicles are essentially normal in contour, size, echogenicity, and vascularity without intratesticular mass lesion, infectious/inflammatory process, or torsion. A 9 mm right epididymal head cyst with floating debris is identified. A large fluid collection surrounds the left testicle which likely represents hydrocele and less likely enlarged epididymal cyst. No varicoceles are identified. Right testicle measures 4.3 x 1.9 x 2.9 cm. Left testicle measures 4.1 x 2.6 x 2.7 cm. IMPRESSION: 1. Large fluid collection in the left hemiscrotum with small amount of floating debris likely represents hydrocele with differential including large epididymal cyst. 2. 9 mm right epididymal head cyst. 3. Normal appearance of the testicles. <Electronically signed by Palomo Diamond > 01/11/21 0729
== END ==
LOC: M RAD 15:49
PROVIDERS: ATTEND Urology
DX: N43.3 Hydrocele, unspecified (principal)

== ENCOUNTER → 2021-01-26 | Outpatient (CLI) | payer BC ==
--- NOTE | 2021-01-26 13:15 | REPPI ---
INDICATION: MID BACK PAIN. COMPARISON: None. TECHNIQUE: AP and lateral views FINDINGS: There is no evidence of an acute fracture. The pedicles appear to be intact bilaterally.. There is mild disc space narrowing and anterior lipping seen at every level. Vertebral body height and alignment is within normal limits. IMPRESSION: Mild chronic changes. <Electronically signed by Johnson Bradley > 01/26/21 [id number]
--- NOTE | 2021-01-26 13:16 | REPPI ---
INDICATION: LOW BACK PAIN WITHOUT SCIATICA. COMPARISON: None TECHNIQUE: AP and lateral views only FINDINGS: Limited two view examination of the lumbar spine shows slight posterior disc space narrowing at every level. Vertebral body height and alignment is within normal limits. The pedicles are intact bilaterally. There is partial lumbarization of S1.. IMPRESSION: Findings as described above. <Electronically signed by Johnson Bradley > 01/26/21 [id number]
== END ==
LOC: M PLAIMG 12:38
PROVIDERS: ATTEND Physician Assistant
DX: Q76.49 Other congenital malformations of spine, not associated with scoliosis (principal); M48.04 Spinal stenosis, thoracic region; M54.5 Low back pain

== ENCOUNTER → 2021-02-21 | Outpatient (CLI) | payer BC ==
[~2021-02-21] MED LIST changes: +HUMI40IN2
== END ==
LOC: M LABSMTC 10:50
PROVIDERS: ATTEND Anesthesiology
DX: Z01.812 Encounter for preprocedural laboratory examination (principal)

== ENCOUNTER → 2021-02-23 | Outpatient (REF) | payer BC ==
[~2021-02-23] MED LIST changes: +KETO10TAB PO
[2021-02-23 10:30] LABS: HEMATOCRIT 47.2 % (42.0-52.0); HEMOGLOBIN 15.8 g/dl (13.5-17.5); MEAN CORPUSCULAR HEMOGLOBIN 31.7 pg (27.0-33.0); MEAN CORPUSCULAR HGB CONC 33.5 g/dl (32.0-36.5); MEAN CORPUSCULAR VOLUME 94.8 fl (80.0-96.0); PLATELET COUNT, AUTOMATED 258 10^3/uL (150-450); RED BLOOD COUNT 4.98 10^6/uL (4.30-6.10); WHITE BLOOD COUNT 5.5 10^3/uL (4.0-10.0)
[2021-02-23 10:48] LABS: BLOOD UREA NITROGEN 11 MG/DL (7-18); CARBON DIOXIDE LEVEL 29 MEQ/L (21-32); CHLORIDE LEVEL 108 MEQ/L (98-107); CREATININE FOR GFR 1.16 MG/DL (0.70-1.30); GLOMERULAR FILTRATION RATE > 60.0 (>60); GLUCOSE, FASTING 96 MG/DL (70-100); POTASSIUM SERUM 4.6 MEQ/L (3.5-5.1); SODIUM LEVEL 141 MEQ/L (136-145)
== END ==
LOC: M LABSMT 08:17
PROVIDERS: ATTEND Urology
DX: N43.3 Hydrocele, unspecified (principal)

== ENCOUNTER 2021-02-26 08:07 | Day surgery (SDC) | payer BC ==
[~2021-02-26] VITALS: Ht 182.9 cm; Wt 117.0 kg
[~2021-02-26 08:07] MED LIST changes: -KETO10TAB PO; +LIDOCAINE 1% MDV 20ML VIAL SQ PRN; +LR 1,000 ML IV ONE
[2021-02-26] MEDS: ceFAZolin SOD 2 GM in IV 1 EA IV ONE ×2 (08:38→09:04)
[2021-02-26] MEDS ORDERED: LIDOCAINE 1% MDV 20ML VIAL As Ordered ONE (08:42)
[2021-02-26] MEDS ORDERED: BACITRACIN OINTMENT 30GM TUBE As Ordered ONE (08:42)
[2021-02-26] MEDS ORDERED: BUPIVACAINE HCL 0.25% 10ML VIAL As Ordered ONE (08:42)
[2021-02-26] MEDS ORDERED: SCOPOLAMINE 1MG TRANSDERMAL PATCH As Ordered ONE (08:59)
[2021-02-26] MEDS ORDERED: SCOPOLAMINE 1MG TRANSDERMAL PATCH TOP ONE (09:00)
[2021-02-26] MEDS ORDERED: ACETAMINOPHEN 1000MG 100ML IV BTL (OFIRMEV) (J0131 PER 10MG) As Ordered ONE (09:28)
[2021-02-26] MEDS ORDERED: dexameTHASONE 4 MG/ML 1ML VIAL (J1100 PER 1MG) As Ordered ONE (09:30)
[2021-02-26] MEDS ORDERED: ONDANSETRON 4MG/2ML VIAL As Ordered ONE (09:57)
[2021-02-26] MEDS ORDERED: KETOROLAC 60MG 2ML VIAL As Ordered ONE (09:57)
--- NOTE | 2021-02-26 10:16 | ROOPDOC ---
[facility] Report Of Operation Report of Operation DATE OF PROCEDURE: 02/26/21 PREPROCEDURE DIAGNOSES: Left hydrocele POSTPROCEDURE DIAGNOSES: Left hydrocele PROCEDURE: Hydrocelectomy SURGEON: Michael Emerson MD STUDENT SERVICES REPRESENTATIVE: None ANESTHESIA: Gen. ESTIMATED BLOOD LOSS: Approximately less than 5 mL. COMPLICATIONS: None REMARKS: . PROCEDURE NOTE: Patient was brought to the operating room for excision of a left hydrocele. DESCRIPTION OF PROCEDURE: The patient was placed on the table in the supine position, given general anesthesia, prepped with Betadine paint and draped in a sterile manner. Timeout was then performed. A #15 scalpel was then used to make a left scrotal incision which is carried down to the tunica vaginalis. Hemostasis was achieved with cauterization. The hydrocele sac was then opened, drained and the excess tissue was then excised with the Bovie cautery. The edges were then oversewn with a running interlocking 3-0 chromic suture. The appendix testis was then removed and the testicle was delivered back down into the scrotal sac. The sac was then closed with an inner layer of running 3-0 chromic suture and an outer interrupted layer of 3-0 chromic. Area was anesthetized with quarter percent Marcaine without epinephrine and a bacitracin and fluff dressing was applied. The patient was then awakened and sent to recovery room in stable condition having tolerated procedure well. MICHAEL EMERSON MD February 26, 2021 10:16
[2021-02-26] MEDS ORDERED: fentaNYL 100 MCG/2 ML INJECTION (J3010) IV PRN (10:20)
[2021-02-26] MEDS ORDERED: LR 1,000 ML IV SCH ×2 (10:20→10:25)
[2021-02-26] MEDS ORDERED: ONDANSETRON 4MG/2ML VIAL IV PRN (10:20)
[2021-02-26] MEDS: oxyCODONE 5MG TAB PO PRN ×2 (10:43→11:39)
[2021-02-26] MEDS ORDERED: LR 500 ML IV ONE (10:50)
[2021-02-26] MEDS ORDERED: GLYCOPYRROLATE INJ 0.2 MG/ML 2 ML VIAL IV ONE (10:55)
[2021-02-26] MEDS ORDERED: ePHEDrine SULFATE 25 MG/5 ML(5MG/ML) SYRINGE IV ONE (10:55)
[2021-02-26] MEDS ORDERED: KETO10TAB PO (12:34)
[2021-02-26 12:35] VITALS: BP 128/75
[2021-02-26] MEDS ORDERED: IBUPROFEN 600MG TAB PO PRN (16:00)
== END 2021-02-26 12:35 | disposition home or self-care (01) ==
LOC: M SDC 08:07
PROVIDERS: ATTEND Urology
DX: N43.3 Hydrocele, unspecified (principal); K21.9 Gastro-esophageal reflux disease without esophagitis; F41.9 Anxiety disorder, unspecified; I35.9 Nonrheumatic aortic valve disorder, unspecified; Z88.1 Allergy status to other antibiotic agents; Z79.899 Other long term (current) drug therapy; Z91.010 Allergy to peanuts
CPT/HCPCS: 55040; 88302; J0131; J0690; J1100; J1885; J2405; J3010

== ENCOUNTER → 2021-05-12 | Outpatient (CLI) | payer BC ==
[~2021-05-12] MED LIST changes: +KETO10TAB PO; -LIDOCAINE 1% MDV 20ML VIAL SQ PRN; -LR 1,000 ML IV ONE; +SUCR1ORA2
== END ==
LOC: M LABSMTC 10:12
PROVIDERS: ATTEND Anesthesiology
DX: Z20.828 Contact with and (suspected) exposure to other viral communicable diseases (principal); Z11.59 Encounter for screening for other viral diseases

== ENCOUNTER 2021-05-17 13:05 | Day surgery (SDC) | payer BC ==
[~2021-05-17] VITALS: Ht 182.9 cm; Wt 118.4 kg
[~2021-05-17 13:05] MED LIST changes: +NS 1,000 ML IV ONE
[2021-05-17] MEDS ORDERED: fentaNYL 100 MCG/2 ML INJECTION (J3010) As Ordered ONE (15:39)
[2021-05-17] MEDS ORDERED: propofoL 200 MG/20 ML VIAL As Ordered ONE (15:40)
--- NOTE | 2021-05-17 16:05 | ROOR ---
Patient Name: Kennedy Moreno Procedure Date: 05/17/2021 3:36 PM Date of : 1985 Age: 36 Room: [facility] Gender: Male Note Status: Finalized Procedure: Upper GI endoscopy Indications: Follow-up of eosinophilic esophagitis Providers: Vik Juan MD Referring MD: Helga Royal Requesting Provider: Medicines: Monitored Anesthesia Care Complications: No immediate complications. Procedure: Pre-Anesthesia Assessment: - Prior to the procedure, a History and Physical was performed, and patient medications and allergies were reviewed. The patient is competent. The risks and benefits of the procedure and the sedation options and risks were discussed with the patient. All questions were answered and informed consent was obtained. Patient identification and proposed procedure were verified by the physician, the nurse and the anesthesiologist in the procedure room. Mental Status Examination: alert and oriented. Airway Examination: normal oropharyngeal airway and neck mobility. Respiratory Examination: clear to auscultation. CV Examination: normal. Prophylactic Antibiotics: The patient does not require prophylactic antibiotics. Prior Anticoagulants: The patient has taken no previous anticoagulant or antiplatelet agents. ASA Grade Assessment: II - A patient with mild systemic disease. After reviewing the risks and benefits, the patient was deemed in satisfactory condition to undergo the procedure. The anesthesia plan was to use monitored anesthesia care (MAC). Immediately prior to administration of medications, the patient was re-assessed for adequacy to receive sedatives. The heart rate, respiratory rate, oxygen saturations, blood pressure, adequacy of pulmonary ventilation, and response to care were monitored throughout the procedure. The physical status of the patient was re-assessed after the procedure. The Endoscope was introduced through the mouth, and advanced to the second part of duodenum. The upper GI endoscopy was accomplished without difficulty. The patient tolerated the procedure well. Findings: Mucosal changes including longitudinal furrows and white plaques were found in the middle third of the esophagus and in the lower third of the esophagus. Biopsies were obtained from the proximal and distal esophagus with cold forceps for histology of suspected eosinophilic esophagitis. Verification of patient identification for the specimen was done by the physician and nurse using the patient's name, date and medical record number. Estimated blood loss was minimal. The Z-line was regular and was found at the gastroesophageal junction. Scattered moderate inflammation characterized by erythema and granularity was found in the gastric antrum. Biopsies were taken with a cold forceps for Helicobacter pylori testing. No gross lesions were noted in the duodenal bulb, in the second portion of the duodenum and in the third portion of the duodenum. Biopsies for histology were taken with a cold forceps for evaluation of celiac disease. Impression: - Esophageal mucosal changes suggestive of eosinophilic esophagitis. Biopsied. - Z-line regular, at the gastroesophageal junction. - Gastritis. Biopsied. - No gross lesions in the duodenal bulb, in the second portion of the duodenum and in the third portion of the duodenum. Biopsied. Recommendation: - Patient has a contact number available for emergencies. The signs and symptoms of potential delayed complications were discussed with the patient. Return to normal activities tomorrow. Written discharge instructions were provided to the patient. - High fiber diet. - Continue present medications. - Await pathology results. - Telephone GI clinic for pathology results in 2 weeks. - Return to GI clinic if persistent symptoms or new symptoms. - Return to primary care physician. Procedure Code(s): --- Professional --- 66086, Esophagogastroduodenoscopy, flexible, transoral; with biopsy, single or multiple Diagnosis Code(s): --- Professional --- K22.8, Other specified diseases of esophagus K29.70, Gastritis, unspecified, without bleeding K20.0, Eosinophilic esophagitis CPT copyright 2019 [place] [employer]. All rights reserved. The codes documented in this report are preliminary and upon dual hose cementer review may be revised to meet current compliance requirements. Vik Juan MD Vik Juan MD 05/17/2021 4:05:03 PM Electronically signed by Vik Juan MD Number of Addenda: 0 Note Initiated On: 05/17/2021 3:36 PM Estimated Blood Loss: Estimated blood loss was minimal.
[2021-05-17 16:15] VITALS: BP 129/88
== END 2021-05-17 16:24 | disposition home or self-care (01) ==
LOC: M OPP 13:05
PROVIDERS: ATTEND Internal Medicine Gastroenterology
DX: K22.8 Other specified diseases of esophagus (principal); K29.70 Gastritis, unspecified, without bleeding; K20.0 Eosinophilic esophagitis; Z79.899 Other long term (current) drug therapy; Z88.1 Allergy status to other antibiotic agents; Z87.11 Personal history of peptic ulcer disease
CPT/HCPCS: 43239; 88305; J3010

== ENCOUNTER → 2021-08-03 | Outpatient (CLI) | payer BC ==
[~2021-08-03] MED LIST changes: -NS 1,000 ML IV ONE
--- NOTE | 2021-08-03 11:58 | REP ---
INDICATION: PAIN IN THORACIC SPINE. COMPARISON: 01/26/2021 TECHNIQUE: AP and lateral FINDINGS: The disc spaces are mildly narrowed status quo. There is no acute fracture or destructive osseous lesion. IMPRESSION: No significant change from 01/26/2021 <Electronically signed by Johnson Bradley > 08/03/21 115
--- NOTE | 2021-08-03 12:01 | REP ---
INDICATION: PAIN IN THORACIC SPINE. COMPARISON: 01/26/2021 TECHNIQUE: Multiple views with bending views FINDINGS: Vertebral body height and alignment is within normal limits and essentially unchanged. Once again, there is mild disc space narrowing seen posteriorly at every level. Once again, there is partial lumbarization of S1 on the left status quo. The pedicles are again seen to be intact bilaterally. There is no spondylolysis or spondylolisthesis. Bending views show no instability. IMPRESSION: Mild chronic changes as described above. <Electronically signed by Johnson Bradley > 08/03/21 0970
== END ==
LOC: M PLAIMG 09:32
PROVIDERS: ATTEND Physician Assistant Medical
DX: M48.07 Spinal stenosis, lumbosacral region (principal); M54.6 Pain in thoracic spine; M54.42 Lumbago with sciatica, left side

== ENCOUNTER → 2021-08-23 | Outpatient (CLI) | payer BC ==
[~2021-08-23] MED LIST changes: +ISOVUE-370 76% 100ML VIAL As Ordered ONE
--- NOTE | 2021-08-23 11:04 | REP ---
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 The examinations are somewhat technically different. There is no evidence of dissection. The mediastinum and pulmonary ciaran appear stable. There is no mass or adenopathy. There are no pleural or pericardial effusions. The imaged upper abdomen and imaged osseous structures are stable. Evaluation of the lung koehler shows no interim development of abnormal nodules, masses, or opacities. IMPRESSION: Aortic measurement as described above. On the prior examination the maximal AP dimension was 4.7 cm, however, today's examination is technically different from the prior examination. <Electronically signed by Johnson Bradley > 08/23/21 [id number]
== END ==
LOC: M RAD 09:30
PROVIDERS: ATTEND Nurse Practitioner Family
DX: I71.2 Thoracic aortic aneurysm, without rupture (principal)
CPT/HCPCS: 71275; Q9967

== ENCOUNTER → 2021-12-12 | Outpatient (CLI) | payer BC ==
[~2021-12-12] MED LIST changes: -ISOVUE-370 76% 100ML VIAL As Ordered ONE
[2021-12-12 13:23] LABS: BASO % 0.8 % (0.0-1.0); EOS # 0.2 10^3/uL (0.0-0.5); HEMATOCRIT 45.3 % (42.0-52.0); HEMOGLOBIN 15.2 g/dl (13.5-17.5); LYMPH # 1.6 10^3/uL (1.5-5.0); LYMPH % 29.8 % (24.0-44.0); MEAN CORPUSCULAR HEMOGLOBIN 31.1 pg (27.0-33.0); MEAN CORPUSCULAR HGB CONC 33.6 g/dl (32.0-36.5); MEAN CORPUSCULAR VOLUME 92.8 fl (80.0-96.0); MONO # 0.5 10^3/uL (0.0-0.8); MONO % 9.8 % (2.0-8.0); NEUTROPHILS % 56.4 % (36.0-66.0); PLATELET COUNT, AUTOMATED 280 10^3/uL (150-450); RED BLOOD COUNT 4.88 10^6/uL (4.30-6.10); WHITE BLOOD COUNT 5.3 10^3/uL (4.0-10.0)
[2021-12-12 13:27] LABS: ALBUMIN 4.3 GM/DL (3.2-5.2); ALT/SGPT 60 U/L (12-78); BILIRUBIN,TOTAL 1.2 MG/DL (0.2-1.0); BLOOD UREA NITROGEN 10 MG/DL (7-18); CALCIUM LEVEL 9.4 MG/DL (8.5-10.1); CARBON DIOXIDE LEVEL 29 MEQ/L (21-32); CHLORIDE LEVEL 109 MEQ/L (98-107); CHOLESTEROL LEVEL 174 MG/DL (<200); CHOLESTEROL RISK RATIO 3.866 (<5); CREATININE FOR GFR 1.16 MG/DL (0.70-1.30); GLOMERULAR FILTRATION RATE > 60.0 (>60); GLUCOSE, FASTING 96 MG/DL (70-100); HDL CHOLESTEROL 45 MG/DL (>40); LDL CHOLESTEROL 116 MG/DL (<100); NON-HDL-C 129 MG/DL; POTASSIUM SERUM 4.7 MEQ/L (3.5-5.1); SODIUM LEVEL 140 MEQ/L (136-145); TOTAL PROTEIN 7.5 GM/DL (6.4-8.2); TRIGLYCERIDES LEVEL 64 MG/DL (<150)
[2021-12-12 20:09] LABS: HEMOGLOBIN A1c 5.7 %
== END ==
LOC: M PLALAB 09:26
PROVIDERS: ATTEND Physician Assistant Medical
DX: F41.9 Anxiety disorder, unspecified (principal)

== ENCOUNTER 2022-01-21 16:41 | Emergency (ER) | payer BC ==
[~2022-01-21] VITALS: Ht 185.4 cm; Wt 122.7 kg
[2022-01-21] MEDS ORDERED: METO1TAB87 PO (16:48)
[2022-01-21] MEDS ORDERED: GI COCKTAIL 50ML BTL(HYOSCYAMINE/MAALOX/LIDOCAINE VISCOUS)(1:3:1) PO ONE (20:40)
[2022-01-21 21:03] LABS: BASO # 0.1 10^3/uL (0.0-0.2); BASO % 0.6 % (0.0-1.0); EOS # 0.2 10^3/uL (0.0-0.5); EOS % 2.4 % (0.0-3.0); HEMATOCRIT 47.4 % (42.0-52.0); HEMOGLOBIN 16.3 g/dl (13.5-17.5); LYMPH # 2.5 10^3/uL (1.5-5.0); LYMPH % 28.2 % (24.0-44.0); MEAN CORPUSCULAR HEMOGLOBIN 31.3 pg (27.0-33.0); MEAN CORPUSCULAR HGB CONC 34.4 g/dl (32.0-36.5); MEAN CORPUSCULAR VOLUME 91.2 fl (80.0-96.0); MONO # 0.7 10^3/uL (0.0-0.8); MONO % 8.4 % (2.0-8.0); NEUTROPHILS # 5.3 10^3/uL (1.5-8.5); NEUTROPHILS % 60.1 % (36.0-66.0); PLATELET COUNT, AUTOMATED 271 10^3/uL (150-450); WHITE BLOOD COUNT 8.8 10^3/uL (4.0-10.0)
[2022-01-21 21:34] LABS: HEMOGLOBIN A1c 5.4 %
[2022-01-21 21:37] LABS: ALBUMIN 4.3 GM/DL (3.2-5.2); ALT/SGPT 70 U/L (12-78); BILIRUBIN,DIRECT 0.2 MG/DL (0.0-0.2); BILIRUBIN,TOTAL 0.8 MG/DL (0.2-1.0); BLOOD UREA NITROGEN 18 MG/DL (7-18); CALCIUM LEVEL 9.9 MG/DL (8.5-10.1); CARBON DIOXIDE LEVEL 26 MEQ/L (21-32); CHLORIDE LEVEL 109 MEQ/L (98-107); CREATININE FOR GFR 1.23 MG/DL (0.70-1.30); FREE THYROXINE INDEX 2.2 % (1.4-3.8); GLOMERULAR FILTRATION RATE > 60.0 (>60); GLUCOSE, FASTING 93 MG/DL (70-100); POTASSIUM SERUM 4.2 MEQ/L (3.5-5.1); SODIUM LEVEL 141 MEQ/L (136-145); T UPTAKE 28 % (33-40); TOTAL PROTEIN 7.5 GM/DL (6.4-8.2)
[2022-01-21 21:50] VITALS: BP 131/84
[2022-01-21] MEDS ORDERED: CARA1TAB6 PO (22:36)
== END 2022-01-21 22:45 | disposition home or self-care (01) ==
LOC: M ED 16:41
DX: R53.83 Other fatigue (principal); H53.8 Other visual disturbances; R20.2 Paresthesia of skin; K21.9 Gastro-esophageal reflux disease without esophagitis; Z79.899 Other long term (current) drug therapy; Z91.010 Allergy to peanuts; Z88.1 Allergy status to other antibiotic agents

== ENCOUNTER → 2022-07-05 | Outpatient (REF) | payer BC ==
[~2022-07-05] MED LIST changes: +CARA1TAB6 PO; +METO1TAB87 PO
== END ==
LOC: M LAB REF 08:55
PROVIDERS: ATTEND Internal Medicine Gastroenterology
DX: R09.89 Other specified symptoms and signs involving the circulatory and respiratory systems (principal); K20.0 Eosinophilic esophagitis; R19.7 Diarrhea, unspecified

== ENCOUNTER → 2022-07-23 | Outpatient (CLI) | payer BC | LOC: M RAD 08:05 | PROVIDERS: ATTEND Thoracic Surgery (Cardiothoracic Vascular Surgery) | DX: I71.21 Aneurysm of the ascending aorta, without rupture (principal) ==

== ENCOUNTER → 2022-07-30 | Outpatient (CLI) | payer BC ==
[~2022-07-30] MED LIST changes: +E-Z-GAS II EFFERVESCENT PACKET (SODIUM BICARB./CITRIC ACID/SIMETHICONE) As Ordered ONE; +E-Z-HD 98% w/w 340GM SUSP BTL As Ordered ONE; +E-Z-PAQUE 96% w/w SUSP 176GM BTL As Ordered ONE
== END ==
LOC: M RAD 08:11
PROVIDERS: ATTEND Internal Medicine Gastroenterology
DX: K20.0 Eosinophilic esophagitis (principal); K21.9 Gastro-esophageal reflux disease without esophagitis

== ENCOUNTER → 2022-09-17 | Outpatient (CLI) | payer BC ==
[~2022-09-17] MED LIST changes: -E-Z-GAS II EFFERVESCENT PACKET (SODIUM BICARB./CITRIC ACID/SIMETHICONE) As Ordered ONE; -E-Z-HD 98% w/w 340GM SUSP BTL As Ordered ONE; -E-Z-PAQUE 96% w/w SUSP 176GM BTL As Ordered ONE
[2022-09-17 11:32] LABS: BASO % 0.7 % (0.0-1.0); EOS # 0.2 10^3/uL (0.0-0.5); EOS % 2.7 % (0.0-3.0); HEMATOCRIT 46.8 % (42.0-52.0); HEMOGLOBIN 15.5 g/dl (13.5-17.5); LYMPH # 1.6 10^3/uL (1.5-5.0); LYMPH % 26.9 % (24.0-44.0); MEAN CORPUSCULAR HEMOGLOBIN 31.1 pg (27.0-33.0); MEAN CORPUSCULAR HGB CONC 33.1 g/dl (32.0-36.5); MONO # 0.6 10^3/uL (0.0-0.8); MONO % 9.2 % (2.0-8.0); NEUTROPHILS # 3.6 10^3/uL (1.5-8.5); PLATELET COUNT, AUTOMATED 276 10^3/uL (150-450); RED BLOOD COUNT 4.98 10^6/uL (4.30-6.10)
[2022-09-17 12:03] LABS: ALBUMIN 3.8 G/DL (3.2-5.2); ALKALINE PHOSPHATASE 67 U/L (46-116); ALT/SGPT 60 U/L (7.0-40); AST/SGOT 37 U/L (<34); BILIRUBIN,TOTAL 0.8 MG/DL (0.3-1.2); BLOOD UREA NITROGEN 14 MG/DL (9-23); CALCIUM LEVEL 9.5 MG/DL (8.5-10.1); CARBON DIOXIDE LEVEL 30 MMOL/L (20-31); CHLORIDE LEVEL 105 MMOL/L (98-107); CREATININE FOR GFR 1.18 MG/DL (0.70-1.30); GLOMERULAR FILTRATION RATE > 60.0 (>60); GLUCOSE, FASTING 103 MG/DL (60-100); POTASSIUM SERUM 5.4 MMOL/L (3.5-5.1); SODIUM LEVEL 140 MMOL/L (136-145); TOTAL PROTEIN 6.9 G/DL (5.7-8.2)
[2022-09-17 12:04] LABS: THYROID STIMULATING HORMONE 1.255 uIU/ML (0.55-4.78); TOTAL 25(OH) VITAMIN D 39.2 NG/ML (20.0-100.0)
[2022-09-17 12:06] LABS: FREE T4 1.19 NG/DL (0.89-1.76)
[2022-09-17 12:08] LABS: VITAMIN B12 LEVEL 392 PG/ML (211-911)
[2022-09-17 14:36] LABS: HEMOGLOBIN A1c 5.5 % (4.0-6.0)
== END ==
LOC: M PLALAB 08:48
PROVIDERS: ATTEND Physician Assistant Medical
DX: R53.83 Other fatigue (principal); I10 Essential (primary) hypertension; K20.0 Eosinophilic esophagitis

== ENCOUNTER 2022-10-24 23:32 | Emergency (ER) | payer BC ==
[~2022-10-24] VITALS: Ht 182.9 cm; Wt 117.7 kg
[2022-10-24 23:34] VITALS: BP 131/82
== END 2022-10-25 02:28 | disposition left against medical advice (07) ==
LOC: M ED 23:32
DX: Z53.21 Procedure and treatment not carried out due to patient leaving prior to being seen by health care provider (principal)

== ENCOUNTER → 2023-02-03 | Outpatient (CLI) | payer BC ==
[2023-02-03 13:31] LABS: HEMATOCRIT 46.5 % (42.0-52.0); HEMOGLOBIN 14.9 g/dl (13.5-17.5); MEAN CORPUSCULAR HEMOGLOBIN 29.9 pg (27.0-33.0); MEAN CORPUSCULAR VOLUME 93.2 fl (80.0-96.0); PLATELET COUNT, AUTOMATED 281 10^3/uL (150-450); RED BLOOD COUNT 4.99 10^6/uL (4.30-6.10); WHITE BLOOD COUNT 6.4 10^3/uL (4.0-10.0)
[2023-02-03 13:38] LABS: BLOOD UREA NITROGEN 13 MG/DL (9-23); CALCIUM LEVEL 9.2 MG/DL (8.5-10.1); CARBON DIOXIDE LEVEL 30 MMOL/L (20-31); CHLORIDE LEVEL 105 MMOL/L (98-107); CREATININE FOR GFR 1.08 MG/DL (0.70-1.30); GLOMERULAR FILTRATION RATE > 60.0 (>60); GLUCOSE, FASTING 92 MG/DL (60-100); SODIUM LEVEL 137 MMOL/L (136-145)
[2023-02-03 13:41] LABS: THYROID STIMULATING HORMONE 1.374 uIU/ML (0.55-4.78)
== END ==
LOC: M PLALAB 10:47
PROVIDERS: ATTEND Nurse Practitioner Family
DX: R53.83 Other fatigue (principal)

== ENCOUNTER → 2023-02-17 | Outpatient (CLI) | payer BC ==
[2023-02-17 13:32] LABS: BASO % 0.6 % (0.0-1.0); EOS # 0.4 10^3/uL (0.0-0.5); EOS % 5.8 % (0.0-3.0); HEMATOCRIT 44.3 % (42.0-52.0); HEMOGLOBIN 14.9 g/dl (13.5-17.5); LYMPH # 1.7 10^3/uL (1.5-5.0); LYMPH % 27.3 % (24.0-44.0); MEAN CORPUSCULAR HEMOGLOBIN 30.8 pg (27.0-33.0); MEAN CORPUSCULAR HGB CONC 33.6 g/dl (32.0-36.5); MEAN CORPUSCULAR VOLUME 91.7 fl (80.0-96.0); MONO # 0.7 10^3/uL (0.0-0.8); MONO % 10.6 % (2.0-8.0); NEUTROPHILS # 3.4 10^3/uL (1.5-8.5); NEUTROPHILS % 55.4 % (36.0-66.0); PLATELET COUNT, AUTOMATED 288 10^3/uL (150-450); RED BLOOD COUNT 4.83 10^6/uL (4.30-6.10); WHITE BLOOD COUNT 6.2 10^3/uL (4.0-10.0)
[2023-02-17 13:46] LABS: ALBUMIN 4.2 G/DL (3.2-5.2); ALKALINE PHOSPHATASE 66 U/L (46-116); ALT/SGPT 52 U/L (7.0-40); AST/SGOT 47 U/L (<34); BILIRUBIN,DIRECT 0.2 MG/DL (<0.4); BILIRUBIN,TOTAL 0.6 MG/DL (0.3-1.2); BLOOD UREA NITROGEN 12 MG/DL (9-23); CARBON DIOXIDE LEVEL 28 MMOL/L (20-31); CHLORIDE LEVEL 106 MMOL/L (98-107); CREATININE FOR GFR 1.06 MG/DL (0.70-1.30); GLOMERULAR FILTRATION RATE > 60.0 (>60); GLUCOSE, FASTING 99 MG/DL (60-100); PHOSPHORUS LEVEL 3.1 MG/DL (2.5-4.9); POTASSIUM SERUM 4.4 MMOL/L (3.5-5.1); SODIUM LEVEL 139 MMOL/L (136-145); TOTAL PROTEIN 6.9 G/DL (5.7-8.2)
[2023-02-17 13:54] LABS: HEPATITIS B SURFACE ANTIBODY POSITIVE (POSITIVE)
[2023-02-17 14:05] LABS: HEPATITIS B SURFACE ANTIGEN NEGATIVE (NEGATIVE)
[2023-02-17 14:18] LABS: HIV 1&2 SCREEN NEGATIVE (NEGATIVE)
[2023-02-17 14:26] LABS: HEPATITIS C VIRUS ABY INDEX 0.6 INDEX (<0.8)
== END ==
LOC: M PLALAB 09:37
PROVIDERS: ATTEND Nurse Practitioner Family
DX: L40.0 Psoriasis vulgaris (principal); Z79.899 Other long term (current) drug therapy; Z51.81 Encounter for therapeutic drug level monitoring

== ENCOUNTER → 2023-04-09 | Outpatient (CLI) | payer BC ==
[~2023-04-09] MED LIST changes: +ATOM18CA; +BACL5TAB2; +SERT50TA29; +VALA1TAB5 PO; +WARF-23
[2023-04-11 23:07] LABS: AFP TUMOR TOTAL 1.1 ng/mL (0.0-6.9); ANA (HEP2) Negative (.); ANTI-MITOCHONDRIAL ANTIBODY <20.0 Units (0.0-20.0); HEPATITIS A IgG TOTAL Negative (Negative)
== END ==
LOC: M PLALAB 09:26
PROVIDERS: ATTEND Physician Assistant Medical
DX: R79.89 Other specified abnormal findings of blood chemistry (principal)

== ENCOUNTER → 2023-04-09 | Outpatient (CLI) | payer BC ==
[~2023-04-09] MED LIST changes: -ATOM18CA; -BACL5TAB2; -SERT50TA29; -VALA1TAB5 PO; -WARF-23
[2023-04-09 14:21] LABS: RHEUMATOID FACTOR QUANT < 3.5 IU/ML (<14); THYROID STIMULATING HORMONE 1.687 uIU/ML (0.55-4.78)
[2023-04-09 14:22] LABS: TOTAL 25(OH) VITAMIN D 32.1 NG/ML (20.0-100.0)
[2023-04-09 14:23] LABS: VITAMIN B12 LEVEL 438 PG/ML (211-911)
[2023-04-14 13:07] LABS: ANTINUCLEAR ANTIBODIES DIRECT Negative (Negative); VITAMIN B1 LEVEL WHOLE BLOOD 123.4 nmol/L (66.5-200.0); VITAMIN B6,PYRIDOXAL PHOSPHATE 10.2 ug/L (3.4-65.2); VITAMIN E(ALPHA TOCOPHEROL) 13.9 mg/L (5.9-19.4); VITAMIN E(GAMMA TOCOPHEROL) 1.6 mg/L (0.7-4.9)
== END ==
LOC: M PLAIMG 09:21
PROVIDERS: ATTEND Psychiatry & Neurology Neurology
DX: M54.2 Cervicalgia (principal); R51.9 Headache, unspecified; R42 Dizziness and giddiness; R20.0 Anesthesia of skin

== ENCOUNTER 2023-05-26 07:10 | Emergency (ER) | payer BC ==
[~2023-05-26] VITALS: Ht 182.9 cm; Wt 120.9 kg
[2023-05-26 08:31] LABS: BASO % 0.8 % (0.0-1.0); EOS # 0.1 10^3/uL (0.0-0.5); EOS % 2.8 % (0.0-3.0); HEMATOCRIT 47.2 % (42.0-52.0); HEMOGLOBIN 15.4 g/dl (13.5-17.5); LYMPH # 0.9 10^3/uL (1.5-5.0); LYMPH % 18.5 % (24.0-44.0); MEAN CORPUSCULAR HGB CONC 32.6 g/dl (32.0-36.5); MONO # 0.6 10^3/uL (0.0-0.8); MONO % 11.8 % (2.0-8.0); NEUTROPHILS # 3.3 10^3/uL (1.5-8.5); NEUTROPHILS % 65.5 % (36.0-66.0); PLATELET COUNT, AUTOMATED 262 10^3/uL (150-450); RED BLOOD COUNT 5.13 10^6/uL (4.30-6.10); WHITE BLOOD COUNT 5.1 10^3/uL (4.0-10.0)
[2023-05-26] MEDS ORDERED: BACL5TAB2 (08:37)
[2023-05-26] MEDS ORDERED: ATOM18CA (08:37)
[2023-05-26] MEDS ORDERED: SERT50TA29 (08:37)
[2023-05-26] MEDS ORDERED: WARF-23 (08:37)
[2023-05-26 09:23] LABS: APPEARANCE, URINE CLEAR (CLEAR); BACTERIA, URINE AUTO NEGATIVE (NEGATIVE); BILIRUBIN, URINE AUTO NEGATIVE (NEGATIVE); BLOOD, URINE BLOOD 1+ (NEGATIVE); COLOR, URINE YELLOW (YELLOW); GLUCOSE, URINE (UA) AUTO NEGATIVE (NEGATIVE); KETONE, URINE AUTO NEGATIVE (NEGATIVE); LEUKOCYTE ESTERASE, URINE AUTO NEGATIVE (NEGATIVE); MUCUS, URINE SMALL (NEGATIVE); NITRITE, URINE AUTO NEGATIVE (NEGATIVE); PROTEIN, URINE AUTO NEGATIVE (NEGATIVE); RBC, URINE AUTO 1 /HPF (0-3); SPECIFIC GRAVITY URINE AUTO 1.013 (1.002-1.035); SQUAMOUS EPITHELIAL CELL UR AU 0 /HPF (0-6); UROBILINOGEN, URINE AUTO 0.2 mg/dL (0.0-2.0); WBC, URINE AUTO 0 /HPF (0-3)
[2023-05-26 09:41] LABS: ALBUMIN 3.9 G/DL (3.2-5.2); ALKALINE PHOSPHATASE 71 U/L (46-116); ALT/SGPT 51 U/L (7.0-40); AST/SGOT 30 U/L (<34); BILIRUBIN,DIRECT 0.2 MG/DL (<0.4); BILIRUBIN,TOTAL 0.9 MG/DL (0.3-1.2); TOTAL PROTEIN 6.9 G/DL (5.7-8.2)
[2023-05-26] MEDS ORDERED: ACETAMINOPHEN 500 MG TAB PO ONE (10:20)
[2023-05-26 10:28] LABS: ERYTHROCYTE SEDIMENTATION RATE 17 mm/hr (0-15)
[2023-05-26 10:41] LABS: C REACTIVE PROTEIN QUANTITATIV < 0.40 MG/DL (<1.0)
[2023-05-26] MEDS ORDERED: VALA1TAB5 PO (10:46)
[2023-05-26 10:53] VITALS: BP 155/88; TEMP 97.3; O2SAT 96
== END 2023-05-26 10:54 | disposition home or self-care (01) ==
LOC: M ED 07:10
DX: B02.9 Zoster without complications (principal); M54.50 Low back pain, unspecified; F41.9 Anxiety disorder, unspecified; K21.9 Gastro-esophageal reflux disease without esophagitis; Z88.1 Allergy status to other antibiotic agents; Z91.048 Other nonmedicinal substance allergy status; Z79.01 Long term (current) use of anticoagulants; Z79.899 Other long term (current) drug therapy

== ENCOUNTER → 2023-08-08 | Outpatient (CLI) | payer BC ==
[~2023-08-08] MED LIST changes: +ATOM18CA; +BACL5TAB2; +SERT50TA29; +VALA1TAB5 PO; +WARF-23
== END ==
LOC: M WHC 08:03
PROVIDERS: ATTEND Physician Assistant Medical
DX: K76.0 Fatty (change of) liver, not elsewhere classified (principal); R79.89 Other specified abnormal findings of blood chemistry

== ENCOUNTER → 2023-11-24 | Outpatient (CLI) | payer BC ==
[2023-11-24 14:25] LABS: BASO % 0.5 % (0.0-1.0); EOS # 0.1 10^3/uL (0.0-0.5); EOS % 1.9 % (0.0-3.0); HEMATOCRIT 47.3 % (42.0-52.0); HEMOGLOBIN 15.8 g/dl (13.5-17.5); LYMPH # 1.6 10^3/uL (1.5-5.0); LYMPH % 22.1 % (24.0-44.0); MEAN CORPUSCULAR HGB CONC 33.4 g/dl (32.0-36.5); MEAN CORPUSCULAR VOLUME 92.7 fl (80.0-96.0); MONO # 0.7 10^3/uL (0.0-0.8); MONO % 9.9 % (2.0-8.0); NEUTROPHILS # 4.8 10^3/uL (1.5-8.5); NEUTROPHILS % 65.2 % (36.0-66.0); PLATELET COUNT, AUTOMATED 333 10^3/uL (150-450); WHITE BLOOD COUNT 7.4 10^3/uL (4.0-10.0)
[2023-11-24 14:57] LABS: ALBUMIN 4.2 G/DL (3.2-5.2); ALKALINE PHOSPHATASE 66 U/L (46-116); ALT/SGPT 49 U/L (7.0-40); AST/SGOT 41 U/L (<34); BILIRUBIN,TOTAL 0.7 MG/DL (0.3-1.2); BLOOD UREA NITROGEN 14 MG/DL (9-23); CALCIUM LEVEL 9.2 MG/DL (8.5-10.1); CARBON DIOXIDE LEVEL 27 MMOL/L (20-31); CHLORIDE LEVEL 107 MMOL/L (98-107); CHOLESTEROL LEVEL 188 MG/DL (<200); CHOLESTEROL RISK RATIO 4.57 (<5); CREATININE FOR GFR 1.03 MG/DL (0.70-1.30); GLOMERULAR FILTRATION RATE > 60.0 (>60); GLUCOSE, FASTING 90 MG/DL (60-100); HDL CHOLESTEROL 41.1 MG/DL (>40); LDL CHOLESTEROL 125.9 MG/DL (<100); NON-HDL-C 146.9 MG/DL; SODIUM LEVEL 139 MMOL/L (136-145); TOTAL PROTEIN 6.9 G/DL (5.7-8.2); TRIGLYCERIDES LEVEL 105 MG/DL (<150)
== END ==
LOC: M PLAIMG 10:51
PROVIDERS: ATTEND Physician Assistant Medical
DX: M47.812 Spondylosis without myelopathy or radiculopathy, cervical region (principal); M51.34 Other intervertebral disc degeneration, thoracic region; M50.323 Other cervical disc degeneration at C6-C7 level; J30.1 Allergic rhinitis due to pollen; I10 Essential (primary) hypertension; Z13.220 Encounter for screening for lipoid disorders

== ENCOUNTER → 2023-12-16 | Outpatient (CLI) | payer BC | LOC: M RAD 08:06 | PROVIDERS: ATTEND Psychiatry & Neurology Neurology | DX: G43.009 Migraine without aura, not intractable, without status migrainosus (principal); R42 Dizziness and giddiness; R20.2 Paresthesia of skin; M54.89 Other dorsalgia; M54.2 Cervicalgia; M43.02 Spondylolysis, cervical region; M47.812 Spondylosis without myelopathy or radiculopathy, cervical region; M51.34 Other intervertebral disc degeneration, thoracic region; Z95.2 Presence of prosthetic heart valve ==

== ENCOUNTER → 2024-04-27 | Outpatient (CLI) | payer BC ==
[2024-04-27 14:39] LABS: HEPATITIS B SURFACE ANTIBODY POSITIVE (POSITIVE)
[2024-04-27 15:03] LABS: HIV 1&2 SCREEN NEGATIVE (NEGATIVE)
[2024-04-27 15:12] LABS: HEPATITIS C VIRUS ABY INDEX 0.02 INDEX (<0.8)
== END ==
LOC: M PLALAB 11:25
PROVIDERS: ATTEND Nurse Practitioner Family
DX: L40.0 Psoriasis vulgaris (principal)

== ENCOUNTER → 2024-05-27 | Outpatient (REF) | payer BC | LOC: M SFHCPLAZ 16:43 | PROVIDERS: ATTEND Physician Assistant Medical | DX: J40 Bronchitis, not specified as acute or chronic (principal) ==

== ENCOUNTER → 2024-07-08 | Outpatient (REF) | payer BC ==
[2024-07-08 15:53] LABS: APPEARANCE, URINE CLEAR (CLEAR); BACTERIA, URINE AUTO NEGATIVE (NEGATIVE); BILIRUBIN, URINE AUTO NEGATIVE (NEGATIVE); BLOOD, URINE BLOOD NEGATIVE (NEGATIVE); COLOR, URINE YELLOW (YELLOW); GLUCOSE, URINE (UA) AUTO NEGATIVE (NEGATIVE); KETONE, URINE AUTO NEGATIVE (NEGATIVE); LEUKOCYTE ESTERASE, URINE AUTO NEGATIVE (NEGATIVE); MUCUS, URINE SMALL (NEGATIVE); NITRITE, URINE AUTO NEGATIVE (NEGATIVE); PROTEIN, URINE AUTO NEGATIVE (NEGATIVE); RBC, URINE AUTO 1 /HPF (0-3); SPECIFIC GRAVITY URINE AUTO 1.012 (1.002-1.035); SQUAMOUS EPITHELIAL CELL UR AU 0 /HPF (0-6); UROBILINOGEN, URINE AUTO 0.2 mg/dL (0.0-2.0); WBC, URINE AUTO 0 /HPF (0-3)
== END ==
LOC: M LAB REF 15:08
PROVIDERS: ATTEND Physician Assistant Medical
DX: R30.0 Dysuria (principal)

== ENCOUNTER → 2024-07-23 | Outpatient (CLI) | payer BC | LOC: M PLAIMG 12:23 | PROVIDERS: ATTEND Physician Assistant Medical | DX: M75.102 Unspecified rotator cuff tear or rupture of left shoulder, not specified as traumatic (principal) ==

== ENCOUNTER → 2024-11-09 | Outpatient (CLI) | payer BC ==
[2024-11-09 13:38] LABS: APPEARANCE, URINE CLEAR (CLEAR); BACTERIA, URINE AUTO NEGATIVE (NEGATIVE); BILIRUBIN, URINE AUTO NEGATIVE (NEGATIVE); BLOOD, URINE BLOOD NEGATIVE (NEGATIVE); COLOR, URINE STRAW (YELLOW); GLUCOSE, URINE (UA) AUTO NEGATIVE (NEGATIVE); KETONE, URINE AUTO NEGATIVE (NEGATIVE); LEUKOCYTE ESTERASE, URINE AUTO NEGATIVE (NEGATIVE); NITRITE, URINE AUTO NEGATIVE (NEGATIVE); PROTEIN, URINE AUTO NEGATIVE (NEGATIVE); RBC, URINE AUTO 0 /HPF (0-3); SPECIFIC GRAVITY URINE AUTO 1.003 (1.002-1.035); SQUAMOUS EPITHELIAL CELL UR AU 0 /HPF (0-6); UROBILINOGEN, URINE AUTO 0.2 mg/dL (0.0-2.0); WBC, URINE AUTO 0 /HPF (0-3)
[2024-11-09 15:18] LABS: BASO # 0.1 10^3/uL (0.0-0.2); BASO % 0.8 % (0.0-1.0); EOS # 0.1 10^3/uL (0.0-0.5); EOS % 1.5 % (0.0-3.0); HEMATOCRIT 47.1 % (42.0-52.0); HEMOGLOBIN 15.5 g/dl (13.5-17.5); LYMPH # 1.6 10^3/uL (1.5-5.0); LYMPH % 23.7 % (24.0-44.0); MEAN CORPUSCULAR HEMOGLOBIN 30.6 pg (27.0-33.0); MEAN CORPUSCULAR HGB CONC 32.9 g/dl (32.0-36.5); MEAN CORPUSCULAR VOLUME 92.9 fl (80.0-96.0); MONO # 0.5 10^3/uL (0.0-0.8); MONO % 7.8 % (2.0-8.0); NEUTROPHILS # 4.4 10^3/uL (1.5-8.5); NEUTROPHILS % 65.9 % (36.0-66.0); PLATELET COUNT, AUTOMATED 326 10^3/uL (150-450); RED BLOOD COUNT 5.07 10^6/uL (4.30-6.10); WHITE BLOOD COUNT 6.7 10^3/uL (4.0-10.0)
[2024-11-09 15:52] LABS: PSA SCREENING 0.77 NG/ML (< 4.00)
[2024-11-09 15:56] LABS: FERRITIN 64.5 NG/ML (10.5-307.3)
== END ==
LOC: M PLALAB 11:18
PROVIDERS: ATTEND Physician Assistant Medical
DX: I95.1 Orthostatic hypotension (principal); Z95.2 Presence of prosthetic heart valve; R39.9 Unspecified symptoms and signs involving the genitourinary system

== ENCOUNTER 2024-11-12 09:30 | Emergency (ER) | payer BC ==
[~2024-11-12] VITALS: Ht 182.9 cm; Wt 112.3 kg
[2024-11-12] MEDS ORDERED: RISA150S2 (09:53)
[2024-11-12] MEDS ORDERED: LEVO1TAB39 (09:53)
[2024-11-12] MEDS ORDERED: SERT25TA21 (09:53)
[2024-11-12 12:00] LABS: BASO % 0.3 % (0.0-1.0); HEMATOCRIT 46.9 % (42.0-52.0); HEMOGLOBIN 16.1 g/dl (13.5-17.5); LYMPH # 0.2 10^3/uL (1.5-5.0); LYMPH % 3.3 % (24.0-44.0); MEAN CORPUSCULAR HEMOGLOBIN 30.9 pg (27.0-33.0); MEAN CORPUSCULAR HGB CONC 34.3 g/dl (32.0-36.5); MONO # 0.4 10^3/uL (0.0-0.8); MONO % 5.3 % (2.0-8.0); NEUTROPHILS # 6.5 10^3/uL (1.5-8.5); NEUTROPHILS % 90.8 % (36.0-66.0); PLATELET COUNT, AUTOMATED 278 10^3/uL (150-450); RED BLOOD COUNT 5.21 10^6/uL (4.30-6.10); WHITE BLOOD COUNT 7.2 10^3/uL (4.0-10.0)
[2024-11-12] MEDS: NS (Normal Saline) 0.9% 1,000 ML IV ONE (12:01)
[2024-11-12] MEDS: ACETAMINOPHEN *IV* 1,000 MG in IV 1 EA IV ONE (12:02)
[2024-11-12 12:19] LABS: LIPASE 57 U/L (12-53)
[2024-11-12 12:22] LABS: ALBUMIN 4.1 G/DL (3.2-5.2); ALKALINE PHOSPHATASE 57 U/L (40-129); ALT/SGPT 45 U/L (7.0-40); AST/SGOT 50 U/L (<34); BILIRUBIN,DIRECT 0.3 MG/DL (<0.4); BILIRUBIN,TOTAL 1.4 MG/DL (0.3-1.2); BLOOD UREA NITROGEN 19 MG/DL (9-23); CALCIUM LEVEL 8.8 MG/DL (8.5-10.1); CARBON DIOXIDE LEVEL 24 MMOL/L (20-31); CHLORIDE LEVEL 106 MMOL/L (98-107); CREATININE FOR GFR 1.01 MG/DL (0.70-1.30); GLOMERULAR FILTRATION RATE > 60.0 (>60); GLUCOSE, FASTING 129 MG/DL (60-100); POTASSIUM SERUM 4.4 MMOL/L (3.5-5.1); SODIUM LEVEL 141 MMOL/L (136-145); TOTAL PROTEIN 7.3 G/DL (5.7-8.2)
[2024-11-12] MEDS ORDERED: ISOVUE-370 76% 100ML VIAL As Ordered ONE (12:26)
[2024-11-12 12:53] LABS: INR 2.91; PROTHROMBIN TIME 30.3 SECONDS (12.5-14.5)
[2024-11-12 14:34] LABS: APPEARANCE, URINE CLEAR (CLEAR); BACTERIA, URINE AUTO NEGATIVE (NEGATIVE); BILIRUBIN, URINE AUTO NEGATIVE (NEGATIVE); BLOOD, URINE BLOOD NEGATIVE (NEGATIVE); COLOR, URINE YELLOW (YELLOW); GLUCOSE, URINE (UA) AUTO NEGATIVE (NEGATIVE); KETONE, URINE AUTO TRACE mg/dL (NEGATIVE); LEUKOCYTE ESTERASE, URINE AUTO NEGATIVE (NEGATIVE); MUCUS, URINE SMALL (NEGATIVE); NITRITE, URINE AUTO NEGATIVE (NEGATIVE); PROTEIN, URINE AUTO NEGATIVE (NEGATIVE); RBC, URINE AUTO 4 /HPF (0-3); SQUAMOUS EPITHELIAL CELL UR AU 0 /HPF (0-6); UROBILINOGEN, URINE AUTO 0.2 mg/dL (0.0-2.0); WBC, URINE AUTO 1 /HPF (0-3)
[2024-11-12 14:36] LABS: SPECIFIC GRAVITY URINE AUTO 1.047 (1.002-1.035)
[2024-11-12] MEDS ORDERED: TRIM300C23 PO (15:34)
[2024-11-12 15:53] VITALS: BP 133/82; TEMP 99.2; O2SAT 98
== END 2024-11-12 15:55 | disposition home or self-care (01) ==
LOC: M ED 09:30
DX: A08.11 Acute gastroenteropathy due to Norwalk agent (principal); R11.2 Nausea with vomiting, unspecified; K42.9 Umbilical hernia without obstruction or gangrene; K21.9 Gastro-esophageal reflux disease without esophagitis; Z79.01 Long term (current) use of anticoagulants; Z88.1 Allergy status to other antibiotic agents; Z79.899 Other long term (current) drug therapy
CPT/HCPCS: 74177; 80048; 80076; 81001; 83690; 85025; 85610; 87486; 87507; 87581; 87633; 87798; 96365; 96366; 99284; J0131; Q9967

== ENCOUNTER → 2025-01-11 | Outpatient (CLI) | payer BC ==
[~2025-01-11] MED LIST changes: +LEVO1TAB39; +RISA150S2; +SERT25TA21; +TRIM300C23 PO
[2025-01-11 10:38] LABS: BASO # 0.1 10^3/uL (0.0-0.2); BASO % 1.1 % (0.0-1.0); EOS # 0.2 10^3/uL (0.0-0.5); HEMATOCRIT 46.6 % (42.0-52.0); HEMOGLOBIN 15.6 g/dl (13.5-17.5); LYMPH # 1.3 10^3/uL (1.5-5.0); LYMPH % 25.2 % (24.0-44.0); MEAN CORPUSCULAR HEMOGLOBIN 30.5 pg (27.0-33.0); MEAN CORPUSCULAR HGB CONC 33.5 g/dl (32.0-36.5); MONO # 0.5 10^3/uL (0.0-0.8); MONO % 8.6 % (2.0-8.0); NEUTROPHILS # 3.3 10^3/uL (1.5-8.5); NEUTROPHILS % 61.7 % (36.0-66.0); PLATELET COUNT, AUTOMATED 293 10^3/uL (150-450); RED BLOOD COUNT 5.12 10^6/uL (4.30-6.10); WHITE BLOOD COUNT 5.3 10^3/uL (4.0-10.0)
[2025-01-11 10:41] LABS: ALBUMIN 4.6 G/DL (3.2-5.2); ALKALINE PHOSPHATASE 56 U/L (40-129); ALT/SGPT 43 U/L (7.0-40); AST/SGOT 34 U/L (<34); BILIRUBIN,TOTAL 0.8 MG/DL (0.3-1.2); BLOOD UREA NITROGEN 15 MG/DL (9-23); CALCIUM LEVEL 9.5 MG/DL (8.5-10.1); CARBON DIOXIDE LEVEL 30 MMOL/L (20-31); CHLORIDE LEVEL 104 MMOL/L (98-107); CREATININE FOR GFR 1.06 MG/DL (0.70-1.30); GLOMERULAR FILTRATION RATE > 60.0 (>60); GLUCOSE, FASTING 106 MG/DL (60-100); POTASSIUM SERUM 4.4 MMOL/L (3.5-5.1); SODIUM LEVEL 141 MMOL/L (136-145); TOTAL PROTEIN 7.2 G/DL (5.7-8.2)
[2025-01-11 10:49] LABS: HEPATITIS B SURFACE ANTIBODY POSITIVE (POSITIVE)
[2025-01-11 11:13] LABS: HIV 1&2 SCREEN NEGATIVE (NEGATIVE)
[2025-01-11 11:21] LABS: HEPATITIS C VIRUS ABY INDEX 0.04 INDEX (<0.8)
== END ==
LOC: M PLALAB 08:45
PROVIDERS: ATTEND Nurse Practitioner Family
DX: L40.0 Psoriasis vulgaris (principal)

== ENCOUNTER 2025-05-22 14:11 | Emergency (ER) | payer BC ==
[~2025-05-22] VITALS: Ht 182.9 cm; Wt 116.9 kg
[~2025-05-22 14:11] MED LIST changes: -SUCR1ORA2; +SUCR1ORA20
[2025-05-22 19:20] LABS: INR 2.26
[2025-05-22 21:26] VITALS: BP 139/83; TEMP 97.4; O2SAT 98
== END 2025-05-22 21:28 | disposition home or self-care (01) ==
LOC: M ED 14:11
DX: M71.321 Other bursal cyst, right elbow (principal); M25.021 Hemarthrosis, right elbow; Z95.2 Presence of prosthetic heart valve; Z79.01 Long term (current) use of anticoagulants; Z88.1 Allergy status to other antibiotic agents; Z91.048 Other nonmedicinal substance allergy status; Z79.899 Other long term (current) drug therapy

== ENCOUNTER → 2025-06-08 | Outpatient (REF) | payer BC ==
[2025-06-08 15:46] LABS: APPEARANCE, URINE CLEAR (CLEAR); BACTERIA, URINE AUTO NEGATIVE (NEGATIVE); BILIRUBIN, URINE AUTO NEGATIVE (NEGATIVE); BLOOD, URINE BLOOD NEGATIVE (NEGATIVE); GLUCOSE, URINE (UA) AUTO NEGATIVE (NEGATIVE); KETONE, URINE AUTO NEGATIVE (NEGATIVE); LEUKOCYTE ESTERASE, URINE AUTO NEGATIVE (NEGATIVE); NITRITE, URINE AUTO NEGATIVE (NEGATIVE); PROTEIN, URINE AUTO NEGATIVE (NEGATIVE); RBC, URINE AUTO 1 /HPF (0-3); SPECIFIC GRAVITY URINE AUTO 1.008 (1.002-1.035); SQUAMOUS EPITHELIAL CELL UR AU 0 /HPF (0-6); UROBILINOGEN, URINE AUTO 0.2 mg/dL (0.0-2.0); WBC, URINE AUTO 0 /HPF (0-3)
== END ==
LOC: M SMT 15:10
PROVIDERS: ATTEND Nurse Practitioner Family
DX: R35.0 Frequency of micturition (principal)

== ENCOUNTER → 2025-06-15 | Outpatient (CLI) | payer BC ==
[2025-06-15 15:31] LABS: BASO # 0.1 10^3/uL (0.0-0.2); BASO % 0.9 % (0.0-1.0); EOS # 0.2 10^3/uL (0.0-0.5); EOS % 4.1 % (0.0-3.0); LYMPH # 1.4 10^3/uL (1.5-5.0); LYMPH % 24.2 % (24.0-44.0); MONO # 0.5 10^3/uL (0.0-0.8); MONO % 9.1 % (2.0-8.0); NEUTROPHILS # 3.6 10^3/uL (1.5-8.5); NEUTROPHILS % 61.4 % (36.0-66.0); PLATELET COUNT, AUTOMATED 323 10^3/uL (150-450)
[2025-06-15 15:38] LABS: RHEUMATOID FACTOR QUANT < 3.5 IU/ML (<14)
[2025-06-15 15:39] LABS: ALT/SGPT 54 U/L (7.0-40); AST/SGOT 45 U/L (<34); C REACTIVE PROTEIN QUANTITATIV 0.51 MG/DL (<1.0); CALCIUM LEVEL 10.2 MG/DL (8.5-10.1); CARBON DIOXIDE LEVEL 30 MMOL/L (20-31); CHLORIDE LEVEL 104 MMOL/L (98-107); CREATININE FOR GFR 1.09 MG/DL (0.70-1.30); ERYTHROCYTE SEDIMENTATION RATE 11 mm/hr (0-15); GLOMERULAR FILTRATION RATE 89.1 (>60); POTASSIUM SERUM 4.6 MMOL/L (3.5-5.1); SODIUM LEVEL 144 MMOL/L (136-145)
== END ==
LOC: M PLALAB 11:28
PROVIDERS: ATTEND Physician Assistant Medical
DX: L40.50 Arthropathic psoriasis, unspecified (principal); M62.838 Other muscle spasm; G89.29 Other chronic pain; M54.42 Lumbago with sciatica, left side; M54.41 Lumbago with sciatica, right side; R20.2 Paresthesia of skin; M47.812 Spondylosis without myelopathy or radiculopathy, cervical region; R20.0 Anesthesia of skin

== ENCOUNTER → 2025-08-03 | Outpatient (CLI) | payer BC, OTHER | LOC: M RAD 16:39 | PROVIDERS: ATTEND Psychiatry & Neurology Neurology | DX: M54.2 Cervicalgia (principal); M43.02 Spondylolysis, cervical region; M54.59 Other low back pain; M43.06 Spondylolysis, lumbar region; M54.16 Radiculopathy, lumbar region ==

== ENCOUNTER 2025-08-09 19:41 | Emergency (ER) | payer OTHER ==
[~2025-08-09] VITALS: Ht 182.9 cm; Wt 119.7 kg
[2025-08-09 21:44] VITALS: BP 120/81; TEMP 97.5; O2SAT 97
== END 2025-08-09 21:47 | disposition home or self-care (01) ==
LOC: M ED 19:41
DX: M62.838 Other muscle spasm (principal); V49.40XA Driver injured in collision with unspecified motor vehicles in traffic accident, initial encounter; M50.323 Other cervical disc degeneration at C6-C7 level; Z88.1 Allergy status to other antibiotic agents; Z91.09 Other allergy status, other than to drugs and biological substances; Z79.01 Long term (current) use of anticoagulants; Z79.899 Other long term (current) drug therapy; Y92.410 Unspecified street and highway as the place of occurrence of the external cause; Y93.89 Activity, other specified; Y99.9 Unspecified external cause status